=== PATIENT | female | born 1980 | race Caucasian/White ===

== ENCOUNTER 2020-12-10 17:08 | Outpatient (REF) | payer OTHER, SELFPAY | END 2020-12-10 17:09 | disposition home or self-care (01) | LOC: HO.LNP 17:08 | PROVIDERS: Visit Provider Hospitalist | DX: Z20.822 Contact with and (suspected) exposure to COVID-19 (principal); B34.9 Viral infection, unspecified | CPT/HCPCS: U0003; U0005 ==

== ENCOUNTER → 2022-01-16 11:23 | Outpatient (BNVA) | payer OTHER, SELFPAY | PROVIDERS: PCP Internal Medicine; Visit Provider Surgery | DX: R22.31 Localized swelling, mass and lump, right upper limb (principal) | CPT/HCPCS: 99202 ==

== ENCOUNTER 2022-01-23 08:10 | Outpatient (REF) | payer OTHER, SELFPAY ==
--- NOTE | ~2022-01-23 | MM_ITS ---
EXAMINATION: MM SCREENING DIGITAL BREAST TOMOSYNTHESIS, BILATERAL CLINICAL INFORMATION: Screening. Asymptomatic. Age 41. No prior breast imaging. The lifetime risk of breast cancer based on the Tyrer-Cuzick Model is 15%. COMPARISON: None (current study represents initial baseline exam). TECHNIQUE: Digital breast tomosynthesis is performed in both the craniocaudal and mediolateral oblique views along with computer-aided detection (CAD). Synthesized 2D images are generated from the tomosynthesis. Additional right MLO view is provided. FINDINGS: There are scattered areas of fibroglandular density (ACR BI-RADS breast composition Category b). There are no significant masses, abnormal calcifications, or other abnormalities. Breast tissue composition borders on heterogeneously dense. No architectural abnormality. The axilla and skin contours are unremarkable. MM/MM tomosynthesis screening BI IMPRESSION: No mammographic evidence of malignancy. ASSESSMENT: BI-RADS 1: Negative RECOMMENDATION: Routine annual mammography screening. This patient's information was entered into a reminder system with a target due date for their next mammogram.
[2022-01-23 08:34] LABS: MANUAL DIFF FLAG NO
[2022-01-23 09:15] LABS: Basophils Percent Auto 0.5 % (0-2); Eosinophils Absolute Auto 0.3 X10*3/uL (0.0-0.4); Eosinophils Percent Auto 3.2 % (0-4); Hematocrit 41.6 % (37.0-47.0); Hemoglobin 13.2 g/dl (12.0-16.0); Imm Gran Abs Auto 0.02 X10*3/uL (0.00-0.03); Imm Gran Pct Auto 0.3 % (0.0-0.4); Lymphocytes Absolute Auto 2.2 X10*3/uL (1.2-4.9); Lymphocytes Percent Auto 27.5 % (20-40); Mean Corpuscular HGB Conc 31.7 g/dl (31.0-35.0); Mean Corpuscular Hemoglobin 26.3 pg (27.0-33.0); Mean Corpuscular Volume 82.9 fL (80.0-98.0); Mean Platelet Volume 9.6 fL (9.4-12.3); Monocytes Absolute Auto 0.8 X10*3/uL (0.1-1.2); Monocytes Percent Auto 10.3 % (2-11); Neutrophils Absolute Auto 4.6 x10*3/uL (2.0-8.3); Neutrophils Percent Auto 58.2 % (45-73); Platelet Count 402 X10*3/uL (160-400); Red Blood Count 5.02 X10*6/uL (4.20-5.50); Red Cell Distribution Width 13.4 % (11.0-16.0); White Blood Count 7.9 X10*3/uL (4.8-10.8)
[2022-01-23 09:51] LABS: Alanine Aminotransferase 18 U/L (0-31); Albumin Level 4.3 g/dL (3.5-5.0); Alkaline Phosphatase 62 U/L (39-117); Anion Gap 15 (12-20); Aspartate Amino Transferase 13 U/L (5-31); Bilirubin Total 0.7 mg/dL (0.0-1.0); Blood Urea Nitrogen 11 mg/dL (9-16); Calcium 9.3 mg/dL (8.4-10.2); Carbon Dioxide 24 mmol/L (22-29); Chloride 105 mmol/L (96-108); Cholesterol 182 mg/dL; Estimated Glomerular Filt Rate > 60; Glucose Random 100 mg/dL (60-115); HDL Cholesterol 53 mg/dL; LDL Cholesterol Calculated 100 mg/dl; Potassium 4.5 mmol/L (3.3-5.1); Sodium 139 mmol/L (135-145); Total Protein 6.9 g/dL (6.5-8.0); Triglycerides 149 mg/dL
[2022-01-23 10:13] LABS: Free T4 (Free Thyroxine) 1.08 ng/dL (0.71-1.85); Thyroid Stimulating Hormone 1.59 uIU/mL (0.32-4.0); Vitamin D 25-OH Total 13.3 ng/mL (>30)
[2022-01-23 10:32] LABS: Folate 12.3 ng/mL (> or = 4.0); Vitamin B12 304 pg/mL (200-900)
== END 2022-01-23 08:11 | disposition home or self-care (01) ==
LOC: HO.MAMMO 08:10
PROVIDERS: PCP Internal Medicine; Visit Provider Internal Medicine
DX: Z12.31 Encounter for screening mammogram for malignant neoplasm of breast (principal); E78.00 Pure hypercholesterolemia, unspecified; F41.1 Generalized anxiety disorder
CPT/HCPCS: 36415; 77063; 77067; 80053; 80061; 82306; 82607; 82746; 84439; 84443; 85025

== ENCOUNTER 2022-01-27 13:58 | Outpatient (REF) | payer OTHER, SELFPAY ==
[2022-01-28 03:29] LABS: CT PCR NOT DETECTED (Not Detect.); NG PCR NOT DETECTED (Not Detect.)
[2022-01-28 12:44] LABS: BV Int Neg Control Negative (Negative); BV Int Pos Control Positive (Positive)
[2022-01-30 10:07] LABS: HPV mRNA E6/E7 rflx Not Detected (Not Detected)
== END 2022-01-27 13:59 | disposition home or self-care (01) ==
LOC: HO.LNP 13:58
PROVIDERS: Visit Provider Advanced Practice Midwife
DX: Z01.419 Encounter for gynecological examination (general) (routine) without abnormal findings (principal); Z11.51 Encounter for screening for human papillomavirus (HPV)
CPT/HCPCS: 87480; 87491; 87510; 87591; 87624; 87660; 88142

== ENCOUNTER 2022-02-04 05:06 | Outpatient (REF) | payer OTHER, SELFPAY ==
--- NOTE | ~2022-02-04 | XR_ITS ---
EXAMINATION: XR HAND, RIGHT CLINICAL INFORMATION: Pain COMPARISON: Previous x-ray July 2013 TECHNIQUE: PA, lateral, and oblique views of the right hand. FINDINGS: Bone alignment is normal. No fracture or dislocation. Normal joint spaces. Soft tissue swelling over the dorsal ulnar distal phalanx of the third finger. No abnormal air collection or soft tissue foreign body. XR/XR hand RT min 3V IMPRESSION: Focal soft tissue swelling over the dorsal ulnar distal phalanx of the third finger.
== END 2022-02-04 05:07 | disposition home or self-care (01) ==
LOC: HO.HOSX 05:06
PROVIDERS: Visit Provider Physician Assistant
DX: M67.441 Ganglion, right hand (principal)
CPT/HCPCS: 73130; 99202

== ENCOUNTER 2022-08-18 08:34 | Outpatient (REF) | payer OTHER, SELFPAY ==
[2022-08-18 09:40] LABS: MANUAL DIFF FLAG NO
[2022-08-18 10:10] LABS: Basophils Percent Auto 0.2 % (0-2); Eosinophils Absolute Auto 0.4 X10*3/uL (0.0-0.4); Eosinophils Percent Auto 4.5 % (0-4); Hematocrit 42.6 % (37.0-47.0); Hemoglobin 13.3 g/dl (12.0-16.0); Imm Gran Abs Auto 0.02 X10*3/uL (0.00-0.03); Imm Gran Pct Auto 0.2 % (0.0-0.4); Lymphocytes Absolute Auto 2.5 X10*3/uL (1.2-4.9); Lymphocytes Percent Auto 28.9 % (20-40); Mean Corpuscular HGB Conc 31.2 g/dl (31.0-35.0); Mean Corpuscular Hemoglobin 25.9 pg (27.0-33.0); Mean Platelet Volume 9.7 fL (9.4-12.3); Monocytes Absolute Auto 0.7 X10*3/uL (0.1-1.2); Monocytes Percent Auto 8.1 % (2-11); Neutrophils Absolute Auto 4.9 x10*3/uL (2.0-8.3); Neutrophils Percent Auto 58.1 % (45-73); Platelet Count 416 X10*3/uL (160-400); Red Blood Count 5.13 X10*6/uL (4.20-5.50); Red Cell Distribution Width 13.5 % (11.0-16.0); White Blood Count 8.5 X10*3/uL (4.8-10.8)
[2022-08-18 10:25] LABS: Estimated Average Glucose 117 mg/dL; Hemoglobin A1c % 5.7 %
[2022-08-18 10:50] LABS: Alanine Aminotransferase 16 U/L (0-31); Albumin Level 4.1 g/dL (3.5-5.0); Alkaline Phosphatase 60 U/L (39-117); Anion Gap 11 (12-20); Aspartate Amino Transferase 12 U/L (5-31); Bilirubin Total 0.9 mg/dL (0.0-1.0); Blood Urea Nitrogen 12 mg/dL (9-16); Calcium 9.7 mg/dL (8.4-10.2); Carbon Dioxide 27 mmol/L (22-29); Chloride 107 mmol/L (96-108); Estimated Glomerular Filt Rate > 60; Glucose Random 101 mg/dL (60-115); Potassium 4.8 mmol/L (3.3-5.1); Sodium 140 mmol/L (135-145); Total Protein 6.6 g/dL (6.5-8.0)
[2022-08-18 11:08] LABS: Free T4 (Free Thyroxine) 0.89 ng/dL (0.71-1.85); Thyroid Stimulating Hormone 2.35 uIU/mL (0.32-4.0)
== END 2022-08-18 08:35 | disposition home or self-care (01) ==
LOC: HO.LAB 08:34
PROVIDERS: Absent Provider Internal Medicine; PCP Internal Medicine; Visit Provider Dietitian, Registered
DX: E66.9 Obesity, unspecified (principal); R19.7 Diarrhea, unspecified; Z71.3 Dietary counseling and surveillance
CPT/HCPCS: 36415; 80053; 83036; 84439; 84443; 85025; 97802

== ENCOUNTER 2022-12-11 11:15 | Outpatient (REF) | payer OTHER, SELFPAY ==
[2022-12-11 11:28] LABS: MANUAL DIFF FLAG NO
[2022-12-11 13:52] LABS: Basophils Percent Auto 0.4 % (0-2); Eosinophils Absolute Auto 0.2 X10*3/uL (0.0-0.4); Hematocrit 43.1 % (37.0-47.0); Hemoglobin 13.7 g/dl (12.0-16.0); Imm Gran Abs Auto 0.03 X10*3/uL (0.00-0.03); Imm Gran Pct Auto 0.3 % (0.0-0.4); Immature Retic Fraction 12.1 % (3.0-15.9); Lymphocytes Absolute Auto 2.6 X10*3/uL (1.2-4.9); Lymphocytes Percent Auto 29.1 % (20-40); Mean Corpuscular HGB Conc 31.8 g/dl (31.0-35.0); Mean Corpuscular Hemoglobin 26.7 pg (27.0-33.0); Mean Corpuscular Volume 83.9 fL (80.0-98.0); Monocytes Absolute Auto 0.7 X10*3/uL (0.1-1.2); Monocytes Percent Auto 7.5 % (2-11); Neutrophils Absolute Auto 5.4 x10*3/uL (2.0-8.3); Neutrophils Percent Auto 60.7 % (45-73); Platelet Count 415 X10*3/uL (160-400); Red Blood Count 5.14 X10*6/uL (4.20-5.50); Red Cell Distribution Width 13.7 % (11.0-16.0); Retic HGB Equivalent 30.7 pg (30.0-35.0); Reticulocytes Absolute 0.101 X10*6/uL (0.026-0.095); White Blood Count 8.9 X10*3/uL (4.8-10.8)
[2022-12-11 13:59] LABS: Appearance Urine Clear; Color Urine Yellow; Glucose Urine UA Negative (Negative); Leukocyte Esterase Urine Negative (Negative); Nitrite Urine Negative (Negative); PH 5.5 (5.0-9.0); Urine Blood Negative (Negative); Urine Ketones Negative (Negative); Urine Protein Negative (Neg-Trace)
[2022-12-11 14:05] LABS: Bacteria Urine 1+ (None Seen); Hyaline Casts Urine 0-2 /LPF (0-2); RBC Urine 0-2 /HPF (0-2); WBC Urine 0-5 /HPF (0-5)
[2022-12-11 14:46] LABS: Alanine Aminotransferase 14 U/L (0-31); Albumin Level 4.1 g/dL (3.5-5.0); Alkaline Phosphatase 59 U/L (39-117); Anion Gap 13 (12-20); Aspartate Amino Transferase 12 U/L (5-31); Bilirubin Total 0.7 mg/dL (0.0-1.0); Blood Urea Nitrogen 14 mg/dL (9-16); Calcium 9.3 mg/dL (8.4-10.2); Carbon Dioxide 25 mmol/L (22-29); Chloride 106 mmol/L (96-108); Estimated Glomerular Filt Rate > 60; Glucose Random 92 mg/dL (60-115); Iron 89 mcg/dL (30-160); Percent Iron Saturation 25 % (15-50); Potassium 4.1 mmol/L (3.3-5.1); Sodium 140 mmol/L (135-145); Total Iron Binding Capacity 357 mcg/dL (228-428); Total Protein 7.1 g/dL (6.5-8.0); Unsaturated Iron Binding 268 ug/dL
[2022-12-11 14:51] LABS: Ferritin 26 ng/mL (10-250); Free T4 (Free Thyroxine) 0.82 ng/dL (0.71-1.85); Thyroid Stimulating Hormone 1.17 uIU/mL (0.32-4.0)
[2022-12-11 15:47] LABS: Folate 4.2 ng/mL (> or = 4.0); Vitamin B12 316 pg/mL (200-900)
== END 2022-12-11 11:16 | disposition home or self-care (01) ==
LOC: HO.LAB 11:15
PROVIDERS: PCP Internal Medicine; Visit Provider Internal Medicine
DX: N92.1 Excessive and frequent menstruation with irregular cycle (principal)
CPT/HCPCS: 36415; 80053; 81001; 82607; 82728; 82746; 83540; 84439; 84443; 85025; 85045

== ENCOUNTER 2023-01-15 09:28 | Outpatient (AMB) | payer OTHER, SELFPAY ==
[2023-01-15 09:33] VITALS: BP 114/78; PULSE 80; O2SAT 98; BMI 41.8
--- NOTE | 2023-01-15 09:33 | A.OFFPC_ITS ---
Vital Signs 01/15/23 09:33 Height 5 ft 5 in Weight 251 lb BMI 41.8 BP 114/78 Blood Pressure Location Lt brachial Position Sitting Pulse 80 Pulse Source Pulse Oximeter Pulse Oximetry (%) 98 Oxygen Delivery Method Room Air Intake Visit Reasons: IGT Allergies No Known Allergies Allergy (Verified 01/15/23 09:34) Medication List - Last Reconciled 01/15/23 by Artur Dove MD cetirizine (Zyrtec) 10 mg PO DAILY PRN ferrous gluconate (Ferate) 240 mg PO DAILY folic acid 1 mg PO DAILY Tobacco use date assessed: 07/17/22 Dental Screening Dental Screen Date: 01/15/23 Did you have a dental visit in the last 12 months?: No Did you have a dental problem in the last 6 months where you did not have access to dental care?: No Was dental information given to patient?: No HPI IGT HPI Details 42-year-old obese female with impaired g lucose tolerance last seen in June 2022 for physical exam. Patient's mammogram is due next month.. Patient is complaining about having tinnitus in both ears and on exam had some mild impacted cerumen on the right side which was taken out. Patient is advise hearing test. Patient has right middle finger mucoid cyst which the Orthopedics has seen and has advised excision and patient was hesitant at but now wants to have this taken out. Did warn patient that it does come back. Also patient is going to be following up with Gynecology as she has been having menorrhagia. She does complain about having hot flashes also. Discussed about menopause and patient's mother had it early also and discussed that most likely she will have it early also. Discussed about alternative treatments like sway but patient will be seeing gynecology. Blood work santos discussed noted some low normal ferritin and low normal folic acid which is going to be replaced. [facility] Medical History (Updated 01/15/23 @ 09:53 by Artur Dove MD) Breast cancer screening by mammogram Well woman exam with routine gynecological exam Dermatitis Cellulitis Finger mass, right Major depression Dog bite Bronchitis Allergic rhinitis Surgical History Status post osteotomy H/O arthroscopy Family History (Updated 07/17/22 @ 12:37 by Kera Stephens) Maternal Grandmother Breast cancer Father Substance abuse Other FH: mental illness Social History (Updated 07/17/22 @ 12:46 by Artur Dove MD) Housing: Apartment Alcohol intake: current Patient Tobacco Use Status: Current someday Tobacco user Tobacco use type: Cigarette Cigarettes Per Day: 1 Years Smoked: smokes 1 Q 2 a week. 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 1. Little interest or pleasure in doing things: several days 2. Feeling down, depressed, or hopeless: several days 3. Trouble falling or staying asleep, or sleeping too much: several days 4. Feeling tired or having little energy: several days 5. Poor appetite or overeating: several days 6. Feeling bad about yourself - or that you are a failure or have let yourself or your family down: several days 7. Trouble concentrating on things, such as reading the newspaper or watching television: more than half the days 8. Moving or speaking so slowly that other people could have noticed. Or the opposite - being so fidgety or restless that you have been moving around a lot more than usual: not at all 9. Thoughts that you would be better off or of hurting yourself in some way: not at all Total score: 8 Depression Screening Interpretation: Positive Source: Developed by Drs. Greg De La Torre, Linda Cervantes, Jones Newton and colleagues, with an educational alexia from [employer]. Thrive Questionnaire Date Thrive assessed: 07/17/22 AUDIT C Alcohol Use Questionnaire (AUDIT-C) 1. How often do you have a drink containing alcohol?: 2-4 times a month 2. How many drinks containing alcohol do you have on a typical day when you are drinking?: 1 or 2 3. How often do you have six or more drinks on one occasion?: Less than monthly Total Score: 3 SHILPI-7 AMB Questionnaire SHILPI-7 Date SHILPI - 7 assessed: 07/17/22 Source: Developed by Drs. Greg L. WilLinda chong, Jones Newton and colleagues, with an educational alexia from [employer]. Physical exam (Primary Care) Vital Signs: Oxygen Delivery Method Room Air 01/15/23 09:33 BMI result Body Mass Index 41.8 Tobacco/Smoking Status: Tobacco use Status Tobacco use date assessed 07/17/22 07/17/22 12:39 Patient Tobacco Use Status Current someday Tobacco 07/17/22 12:46 Tobacco use type Cigarette 07/17/22 12:46 e-Cigarette/Vaping Use Never Used 07/17/22 12:46 Depression Screening Interpretation: Positive Thrive Assessment: Date of Thrive Assessment Date Thrive assessed 07/17/22 07/17/22 12:39 Const General: alert; No acute distress Eyes Conjunctivae: conjunctivae normal Resp Auscultation: clear to auscultation bilaterally Cardio Rate: regular rate Rhythm: regular rhythm GI Inspection: Yes normal to inspection Extrem General: Yes normal to inspection and No edema Assessment and Plan Assessment & Plan (1) Impaired fasting blood sugar: Code(s): R73.01 - Impaired fasting glucose Plan: Decrease the amount of carbohydrate intake, pasta, bread, rice and potatoes are all sugar and that is aside from all the sweet stuff, remember that fruits are good but they are Sweet also. Recent blood work showing normal blood sugar (2) Obesity: Code(s): E66.9 - Obesity, unspecified Plan: Diet and exercise (3) Breast cancer screening by mammogram: Code(s): Z12.31 - Encounter for screening mammogram for malignant neoplasm of breast Plan: Reminded about mammogram (4) Folic acid deficiency: Code(s): E53.8 - Deficiency of other specified B group vitamins (5) Iron deficiency: Code(s): E61.1 - Iron deficiency (6) Mucoid cyst of joint: Comment: Right middle finger Code(s): M67.40 - Ganglion, unspecified site (7) Tinnitus, bilateral: Code(s): H93.13 - Tinnitus, bilateral Orders: Referrals Orthopedics Referral M67.40 - Ganglion, unspecified site Speech and Hearing Referral H93.13 - Tinnitus, bilateral Medications: New ferrous gluconate (Ferate) 240 mg PO DAILY 30 tabs 3RF E61.1 - Iron deficiency folic acid 1 mg PO DAILY 30 tabs 3RF E53.8 - Deficiency of other specified B group vitamins Coding Level of Care Code Est Pt Level 4 (57190) Diagnoses Impaired fasting blood sugar R73.01 Obesity E66.9 Breast cancer screening by mammogram Z12.31 Folic acid deficiency E53.8 Iron deficiency E61.1 Mucoid cyst of joint M67.40 Tinnitus, bilateral H93.13
== END 2023-01-15 09:58 | disposition home or self-care (01) ==
PROVIDERS: Visit Provider Internal Medicine
DX: R73.01 Impaired fasting glucose (principal); E66.01 Morbid (severe) obesity due to excess calories; Z68.41 Body mass index [BMI] 40.0-44.9, adult; E61.1 Iron deficiency; M67.40 Ganglion, unspecified site; H93.13 Tinnitus, bilateral
CPT/HCPCS: 99214

== ENCOUNTER 2023-03-18 15:01 | Outpatient (AMB) | payer OTHER, SELFPAY ==
--- NOTE | 2023-03-18 15:02 | MHC.OFFVIS ---
Intake Vital Signs 03/18/23 15:16 Height 5 ft 5 in Weight 251 lb BMI 41.8 Intake Visit Reasons: ov- R middle finger ganglion Intake Note: Soledad badillo 42 year old left hand dominant female presents today for a follow up of right MF ganglion cyst. Patient was last seen in 2021 and surgical intervention was discussed however patient was unable to take the time off of work. She states tenderness and bleeding from lump when she is on her menstrual cycle. She would like to discuss surgical intervention today. Allergies No Known Allergies Allergy (Verified 03/18/23 15:18) HPI ov- R middle finger ganglion HPI Details 42-year-old right hand dominant female who returns to the office today for a follow-up of right middle finger ganglion cyst. She was seen in 2021 where surgical intervention was discussed but she was unable to take the time off of work. She currently states she has tenderness and bleeding from the lump when she is on her menses. She would like to discuss surgical intervention. 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 [facility] Medical History (Updated 03/16/23 @ 16:20 by Santana Cordoba PA-C) Breast cancer screening by mammogram Well woman exam with routine gynecological exam Dermatitis Cellulitis Finger mass, right Major depression Dog bite Bronchitis Allergic rhinitis Surgical History Status post osteotomy H/O arthroscopy Family History (Updated 07/17/22 @ 12:37 by Kera Stephens) Maternal Grandmother Breast cancer Father Substance abuse Other FH: mental illness Social History (Updated 03/18/23 @ 15:15 by BUSTER Palomino) Housing: Apartment Alcohol intake: current Patient Tobacco Use Status: Current someday Tobacco user Tobacco use type: Cigarette Cigarettes Per Day: 1 Years Smoked: smokes 1 Q 2 a week. 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 Cognitive needs: No Hearing needs: No Vision needs: Yes Female Reproductive History Menstrual Age of Menarche: 14 Review of Systems Const All systems reviewed & are unremarkable except as noted in HPI and below Physical Exam Vital Signs: BMI result Body Mass Index 41.8 Const General: cooperative and no acute distress Orientation/consciousness: patient oriented x3 HEENT Head: Yes normal to inspection, Yes normocephalic and Yes atraumatic Eyes General: appearance normal, both eyes and all related structures Neck Neck: Yes normal visual inspection and Yes no lymphadenopathy Resp Effort & Inspection: normal respiratory effort and able to speak in complete sentences Cardio Rate: regular rate Peripheral pulses: Peripheral pulses 2+ throughout GI Inspection: Yes normal to inspection Palpation (GI): Soft to palpation Skin General skin exam: no rashes or lesions noted Neuro General: patient oriented x3 Extrem Other: She has a mucoid like cyst along the ulnar side of the right middle finger along the base of the nail. There is no fluctulence or purulence. No tenderness to palpation. Full ROM of the finger. NVI. Psych Appearance: grossly normal Mental Status: mental status grossly normal Assessment & Plan Assessment & Plan (1) Mucoid cyst of joint: Comment: Right middle finger Code(s): M67.40 - Ganglion, unspecified site Plan We discussed options which include conservative vs operative treatment. Since this has been present for several months and it is causing discomfort the decision was made to undergo surgical intervention. We discussed risk, benefits and alternatives. Risk including but not limited to infection, stiffness, recurrence of mass and pain. She does understand all this and would like to proceed with excision biopsy of right middle finger with Dr. José. She will be booked accordingly. Patient Instructions: Scribed for Aurora Obrien PA-C, by Srini Matos biomedical engineering internship, on 03/18/2023 at 3:15 PM PATTI. Aurora Burgess PA-C, have personally reviewed and agree with the information entered by the scribe. Coding Level of Care Code Est Pt Level 4 (01026) Diagnoses Mucoid cyst of joint M67.40
[2023-03-18 15:16] VITALS: BMI 41.8
== END 2023-03-18 15:53 | disposition home or self-care (01) ==
PROVIDERS: PCP Internal Medicine; Visit Provider Physician Assistant
DX: M67.441 Ganglion, right hand (principal)
CPT/HCPCS: 99214

== ENCOUNTER → 2023-03-18 15:01 | Outpatient (BNVA) | payer OTHER, SELFPAY | PROVIDERS: PCP Internal Medicine; Visit Provider Physician Assistant | DX: M67.40 Ganglion, unspecified site (principal) | CPT/HCPCS: 99212 ==

== ENCOUNTER 2023-07-06 16:37 | Outpatient (AMB) | payer SELFPAY ==
--- NOTE | 2023-07-06 16:40 | A.OFFPC_ITS ---
Vital Signs 3 07/06/23 16:41 Height 5 ft 5 in Weight 244 lb 0.2 oz BMI 40.6 BP 138/90 H Blood Pressure Location Lt brachial Position Sitting Pulse 71 Pulse Source Pulse Oximeter Pulse Oximetry (%) 100 Oxygen Delivery Method Room Air Intake Visit Reasons: Hemorrhoids Retort Cooler Required: No Allergies No Known Allergies Allergy (Verified 07/06/23 16:40) Tobacco use date assessed: 07/06/23 HPI Hemorrhoids 2 HPI0 Details 42-year-old morbidly obese female with a history of impaired glucose tolerance coming in for an acute problem review of the notes in February seen Orthopedics for right middle finger mass. Advised excision. Patient also notes a mass in the rectal area. noted mass recatal area 2 months has diarrhea patient has been teary also in the office and is very anxious and asking for something to help. [facility] Medical History (Updated 07/06/23 @ 17:22 by Artur Dove MD) Breast cancer screening by mammogram Well woman exam with routine gynecological exam Dermatitis Cellulitis Finger mass, right Major depression Dog bite Bronchitis Allergic rhinitis Surgical History Status post osteotomy H/O arthroscopy Family History (Updated 07/17/22 @ 12:37 by Kera Stephens) Maternal Grandmother Breast cancer Father Substance abuse Other FH: mental illness Social History (Updated 03/18/23 @ 15:15 by BUSTER Palomino) Housing: Apartment Alcohol intake: current Patient Tobacco Use Status: Current someday Tobacco user Tobacco use type: Cigarette Cigarettes Per Day: 1 Years Smoked: smokes 1 Q 2 a week. 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 Cognitive needs: No Hearing needs: No Vision needs: Yes Female Reproductive History Menstrual Age of Menarche: 14 Questionnaire Thrive Questionnaire Date Thrive assessed: 07/06/23 I am a: Patient What is your living situation today?: I have a steady place to live Within the past 12 months, did the food you bought not last and you didn't have the money to get more?: Never true Within the past 12 months, did you worry whether your food would run out before you got money to buy more?: Never true Do you have trouble paying for medicines?: No Do you have trouble getting transportation to medical appointments?: No Do you have trouble paying your heating and electricity bill?: No Do you have trouble taking care of your child, family member or friend?: No Do you have trouble with day-to-day activities such as bathing, preparing meals, shopping, managing finances, etc.?: No Are you currently unemployed and looking for a job?: No Are you interested in more education?: No Please select the resources that you would like help with: None THRIVE Score: 0 AUDIT C Alcohol Use Questionnaire (AUDIT-C) 1. How often do you have a drink containing alcohol?: 2-4 times a month 2. How many drinks containing alcohol do you have on a typical day when you are drinking?: 1 or 2 3. How often do you have six or more drinks on one occasion?: Less than monthly Total Score: 3 Physical exam (Primary Care) Vital Signs: Last Vital Signs Pulse 71 07/06/23 16:41 BP 138/90 H 07/06/23 16:41 Pulse Ox 100 07/06/23 16:41 Oxygen Delivery Method Room Air 07/06/23 16:41 BMI result Body Mass Index 40.6 Tobacco/Smoking Status: Tobacco use Status Tobacco use date assessed 07/06/23 07/06/23 16:42 Patient Tobacco Use Status Current someday Tobacco 07/06/23 16:42 Tobacco use type Cigarette 07/06/23 16:42 e-Cigarette/Vaping Use Never Used 07/06/23 16:42 Thrive Assessment: Date of Thrive Assessment Date Thrive assessed 07/06/23 07/06/23 16:42 Female genitals images: 2 1. L soft mass seen on the upper gluteal area Assessment and Plan Assessment & Plan (1) Gluteal abscess: Code(s): L02.31 - Cutaneous abscess of buttock (2) Generalized anxiety disorder: Code(s): F41.1 - Generalized anxiety disorder Medications: New 2 amoxicillin-pot clavulanate 875-125 mg 1 tab PO BID 14 tabs 0RF L02.31 - Cutaneous abscess of buttock alprazolam 0.25 mg PO BEDTIME PRN 14 tabs 0RF sleep F41.1 - Generalized anxiety disorder Coding Level of Care Code Est Pt Level 3 (56238) Diagnoses Gluteal abscess L02.31 Generalized anxiety disorder F41.1
[2023-07-06 16:41] VITALS: BP 138/90; PULSE 71; O2SAT 100; BMI 40.6
== END 2023-07-06 17:40 | disposition home or self-care (01) ==
PROVIDERS: PCP Internal Medicine; Visit Provider Internal Medicine
DX: L02.31 Cutaneous abscess of buttock (principal); F41.1 Generalized anxiety disorder
CPT/HCPCS: 99213

== ENCOUNTER 2023-11-11 15:39 | Emergency (ER) | payer OTHER, SELFPAY ==
[2023-11-11 16:10] VITALS: BP 169/89; PULSE 90; RESP 16; TEMP 36.8; O2SAT 98; BMI 39.9
--- NOTE | 2023-11-11 16:10 | ED.GENADULT ---
HPI - General Adult General Chief complaint: Skin/Abscess/Foreign Body Stated complaint: Infection? Time Seen by Provider: 11/11/23 17:51 Source: patient Mode of arrival: ambulatory Limitations: no limitations History of Present Illness ED Provider: Cl MAGAÑA HPI narrative: 43-year-old female presents with right buttocks pain reports she has an abscess that has been draining intermittently for the past 2 and half months, patient reports this started after getting Yemeni she has been on 2 rounds of antibiotics however not improving she has been on Bactrim currently is on day 4 of Bactrim and does not feel like it is working. Patient reports the area is tender, and drains pus and blood. Patient has not yet seen a specialist for this. Denies fevers, chills, nausea, vomiting, abdominal pain, headache, vision changes, dizziness and weakness. Related Data Home Medications ?Medication ?Instructions ?Recorded ?Confirmed cetirizine 10 mg tablet (Zyrtec) 10 mg PO DAILY PRN 07/17/22 01/15/23 Previous Rx's ?Medication ?Instructions ?Recorded ferrous gluconate 240 mg (27 mg 240 mg PO DAILY #30 tabs 01/15/23 iron) tablet (Ferate) folic acid 1 mg tablet 1 mg PO DAILY #30 tabs 01/15/23 alprazolam 0.25 mg tablet 0.25 mg PO BEDTIME PRN sleep #14 07/06/23 tabs sulfamethoxazole 800 1 tab PO BID 7 days #14 tabs 10/17/23 mg-trimethoprim 160 mg tablet (Bactrim DS) cephalexin 500 mg tablet 500 mg PO Q6H 10 days #40 tabs 11/11/23 doxycycline hyclate 100 mg capsule 100 mg PO BID 10 days #20 caps 11/11/23 fluconazole 150 mg tablet 150 mg PO Q3D 2 doses #2 tabs 11/11/23 Allergies Allergy/AdvReac Type Severity Reaction Status Date / Time No Known Allergies Allergy Verified 11/11/23 16:11 Review of Systems Review of Systems: Yes all other systems are reviewed and are negative PMFSH Past Medical History Attestation statement: The following information was validated with the patient. Source: old records reviewed and nursing notes reviewed Medical History (Updated 11/11/23 @ 18:07 by SHAHID Iyer) Breast cancer screening by mammogram Well woman exam with routine gynecological exam Dermatitis Cellulitis Finger mass, right Major depression Dog bite Bronchitis Allergic rhinitis Surgical History Status post osteotomy H/O arthroscopy Family History Family History (Updated 07/17/22 @ 12:37 by BUSTER Harrell) Maternal Grandmother Breast cancer Father Substance abuse Other FH: mental illness Social History Social History (Updated 03/18/23 @ 15:15 by BUSTER Palomino) Housing: Apartment Alcohol intake: current Patient Tobacco Use Status: Current someday Tobacco user Tobacco use type: Cigarette Cigarettes Per Day: 1 Years Smoked: smokes 1 Q 2 a week. 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 Oriented X3.? No acute distress.? Head: Normocephalic, atraumatic, no step-offs or deformities Eyes: Pupils equal, round and reactive to light.? CVS: ? Pulses normal.? Respiratory: No respiratory distress Sensative: buttock (right) draining abscess x 2 small < 1 cm each w/ overlying errythmea no warmth. Abdomen: Soft and nontender.? Skin: Skin warm and dry.? Normal skin color.? Normal skin turgor.? Extremities: No lower extremity edema.? No calf ttp. 5/5 strength to bilateral upper and lower extremities Neuro: Oriented X 3.? No motor deficit.? No sensory deficit. CN 2-12 intact Course Course Course Narrative: This is a rapid medical exam performed by Nicolas Tabares NP: Additional HPI, ROS, PE not included below will be deferred to primary provider. Patient is a 43-year-old female presenting to the ED with complaint of buttock abscess. States began as an ingrown hair after a kosovan wax. Saw PCP and was on a course of antibiotics, is now worsening again. Spontaneous drainage. Plan: labs Reevaluation(s) Reevaluation #1: Patient was told to stop Bactrim and start doxycycline and Keflex. Educated patient on diagnosis and treatment plan, answered all question, patient verbalizes understanding. At this time patient will be discharged home, advised to return with new or worsening symptoms. Educated on worrisome signs and symptoms and when to return. At this time I feel comfortable discharge home. Time: 18:30 Medical Decision Making Medical Decision Making [facility] Narrative: 43-year-old female presents with draining abscess to right buttocks x2 months intermittently improving and getting worse. Physical exam buttock (right) draining abscess x 2 small < 1 cm each w/ overlying errythmea no warmth. History and physical exam concerning for draining abscess with possible overlying cellulitis. No signs of necrosis, Lani gangrene, deep abscess. Unlikely systemic infection. Other differential includes hidradenitis suppurativa Plan change antibiotics and general surgery follow-up. Differential Diagnosis Differential Diagnoses: The differential diagnosis associated with the presentation includes History and physical exam concerning for draining abscess with possible overlying cellulitis. No signs of necrosis, Lani gangrene, deep abscess. Unlikely systemic infection. Other differential includes hidradenitis suppurativa Admission/Observation Consideration of admission/observation: Escalation of care including admission/observation considered Lab Data [facility] Lab Attestation statement: I reviewed the patient's lab results. 11/11/23 16:45 11/11/23 16:45 Labs: Lab Results 11/11/23 Range/Units 16:45 WBC 9.2 (4.8-10.8) X10*3/uL RBC 4.96 (4.20-5.50) X10*6/uL Hgb 13.5 (12.0-16.0) g/dl Hct 41.2 (37.0-47.0) % MCV 83.1 (80.0-98.0) fL MCH 27.2 (27.0-33.0) pg MCHC 32.8 (31.0-35.0) g/dl RDW 13.2 (11.0-16.0) % Plt Count 362 (160-400) X10*3/uL MPV 9.3 L (9.4-12.3) fL Immature Gran % (Auto) 0.3 (0.0-0.4) % Neut % (Auto) 56.7 (45-73) % Lymph % (Auto) 31.1 (20-40) % [place] % (Auto) 7.5 (2-11) % Eos % (Auto) 4.1 H (0-4) % Baso % (Auto) 0.3 (0-2) % Lymph # (Auto) 2.9 (1.2-4.9) X10*3/uL [place] # (Auto) 0.7 (0.1-1.2) X10*3/uL Eos # (Auto) 0.4 (0.0-0.4) X10*3/uL Baso # (Auto) 0.0 (0.0-0.2) X10*3/uL Abs Immat Gran (auto) 0.03 (0.00-0.03) X10*3/uL Absolute Neuts (auto) 5.2 (2.0-8.3) x10*3/uL Absolute Nucleated RBC 0.000 (0.0-0.012) X10*3/uL Nucleated RBC % (auto) 0.0 (0.0-0.2) /100WBC Sodium 140 (135-145) mmol/L Potassium 4.2 (3.3-5.1) mmol/L Chloride 109 H (96-108) mmol/L Carbon Dioxide 20 L (22-29) mmol/L Anion Gap 15 (12-20) BUN 10 (9-16) mg/dL Creatinine 0.86 (0.5-1.4) mg/dL Estim Creat Clear Calc 103.4 Estimated GFR > 60 Random Glucose 100 (60-115) mg/dL Calcium 9.7 (8.4-10.2) mg/dL Total Bilirubin 0.3 (0.0-1.0) mg/dL AST 15 (5-31) U/L ALT 19 (0-31) U/L Alkaline Phosphatase 58 (39-117) U/L Total Protein 7.3 (6.5-8.0) g/dL Albumin 4.3 (3.5-5.0) g/dL External Record Review External record reviewed: Inpatient record, Office record, Outpatient record, Prior outpatient labs, Prior outpatient radiology, Primary care record and Outside ED record Prescription Management I considered prescription management with: Antibiotic Discharge Plan Discharge Clinical Impression: Abscess of buttock, right Patient Disposition: Home, Self-Care Instructions: Abscess (ED), Sitz Bath (DC), Abscess Follow-up (ED) Additional Instructions: Take your medications as prescribed. If you were prescribed antibiotics today, it is important that you take your medication to their entirety, do not skip any doses, do not finish them early. Follow-up with your primary care provider this week. Return to the emergency department with new or worsening symptoms. Such as fevers, chills, chest pain, shortness of breath, nausea, vomiting, dizziness, headache, vision changes, lethargy In case of emergency call 911 Prescriptions: New cephalexin 500 mg tablet 500 mg PO Q6H 10 Days Qty: 40 0RF doxycycline hyclate 100 mg capsule 100 mg PO BID 10 Days Qty: 20 0RF fluconazole 150 mg tablet 150 mg PO Q3D Qty: 2 0RF No Action sulfamethoxazole-trimethoprim [Bactrim DS] 800-160 mg tablet 1 tab PO BID 7 Days Qty: 14 0RF cetirizine [Zyrtec] 10 mg tablet 10 mg PO DAILY PRN alprazolam 0.25 mg tablet 0.25 mg PO BEDTIME PRN (Reason: sleep) Qty: 14 0RF ferrous gluconate [Ferate] 240 mg (27 mg iron) tablet 240 mg PO DAILY Qty: 30 3RF folic acid 1 mg tablet 1 mg PO DAILY Qty: 30 3RF Referrals: [facility] [Provider Group] - 2 days Po,Artur Crane MD [Primary Care Provider] - 2 days Stand Alone Forms: Work/School Release Print Language: Lithuanian
[2023-11-11 16:50] LABS: Basophils Percent Auto 0.3 % (0-2); Eosinophils Absolute Auto 0.4 X10*3/uL (0.0-0.4); Eosinophils Percent Auto 4.1 % (0-4); Hematocrit 41.2 % (37.0-47.0); Hemoglobin 13.5 g/dl (12.0-16.0); Imm Gran Abs Auto 0.03 X10*3/uL (0.00-0.03); Imm Gran Pct Auto 0.3 % (0.0-0.4); Lymphocytes Absolute Auto 2.9 X10*3/uL (1.2-4.9); Lymphocytes Percent Auto 31.1 % (20-40); MANUAL DIFF FLAG NO; Mean Corpuscular HGB Conc 32.8 g/dl (31.0-35.0); Mean Corpuscular Hemoglobin 27.2 pg (27.0-33.0); Mean Corpuscular Volume 83.1 fL (80.0-98.0); Mean Platelet Volume 9.3 fL (9.4-12.3); Monocytes Absolute Auto 0.7 X10*3/uL (0.1-1.2); Monocytes Percent Auto 7.5 % (2-11); Neutrophils Absolute Auto 5.2 x10*3/uL (2.0-8.3); Neutrophils Percent Auto 56.7 % (45-73); Platelet Count 362 X10*3/uL (160-400); Red Blood Count 4.96 X10*6/uL (4.20-5.50); Red Cell Distribution Width 13.2 % (11.0-16.0); White Blood Count 9.2 X10*3/uL (4.8-10.8)
[2023-11-11 17:04] LABS: Alanine Aminotransferase 19 U/L (0-31); Albumin Level 4.3 g/dL (3.5-5.0); Alkaline Phosphatase 58 U/L (39-117); Anion Gap 15 (12-20); Aspartate Amino Transferase 15 U/L (5-31); Bilirubin Total 0.3 mg/dL (0.0-1.0); Blood Urea Nitrogen 10 mg/dL (9-16); Calcium 9.7 mg/dL (8.4-10.2); Carbon Dioxide 20 mmol/L (22-29); Chloride 109 mmol/L (96-108); Creatinine Clr Calc Pharmacy 103.4; Estimated Glomerular Filt Rate > 60; Glucose Random 100 mg/dL (60-115); Potassium 4.2 mmol/L (3.3-5.1); Sodium 140 mmol/L (135-145); Total Protein 7.3 g/dL (6.5-8.0)
[2023-11-11 19:06] VITALS: BP 156/72; PULSE 86; RESP 16; TEMP 36.7; O2SAT 98
== END 2023-11-11 19:06 | disposition home or self-care (01) ==
PROVIDERS: Registered Nurse Emergency; Emergency Provider Emergency Medicine; PCP Internal Medicine
DX: L02.31 Cutaneous abscess of buttock (principal); Z79.899 Other long term (current) drug therapy; F17.210 Nicotine dependence, cigarettes, uncomplicated
CPT/HCPCS: 36415; 80053; 85025; 99282; 99283

== ENCOUNTER 2024-07-18 15:23 | Outpatient (AMB) | payer BC, SELFPAY ==
--- NOTE | 2024-07-18 15:43 | A.OFFPC_ITS ---
Vital Signs 3 07/18/24 15:45 Height 5 ft 5 in Weight 250 lb 6 oz BMI 41.7 BP 120/72 Blood Pressure Location Lt brachial Position Sitting Pulse 82 Pulse Source Pulse Oximeter Temp 97.1 F Temp Source Temporal Artery Scan Pulse Oximetry (%) 97 Oxygen Delivery Method Room Air Intake Visit Reasons: MEDs review Intake Note: Patient is here to follow up on med review. 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: No Materials Director: Not Required per policy Accompanied by: Self / Same As Patient Allergies No Known Allergies Allergy (Verified 07/18/24 15:44) Tobacco use date assessed: 07/18/24 Dental Screening Dental Screen Date: 07/18/24 Did you have a dental visit in the last 12 months?: No Did you have a dental problem in the last 6 months where you did not have access to dental care?: No Was dental information given to patient?: No [facility] Medical History (Updated 07/18/24 @ 16:19 by Artur Dove MD) Breast cancer screening by mammogram Well woman exam with routine gynecological exam Dermatitis Cellulitis Finger mass, right Major depression Dog bite Bronchitis Allergic rhinitis Surgical History Status post osteotomy H/O arthroscopy Family History Maternal Grandmother Breast cancer Father Substance abuse Other FH: mental illness Social History (Updated 07/18/24 @ 15:49 by BUSTER Nash) Housing: Apartment Alcohol intake: current Alcohol intake frequency: a few times a week Patient Tobacco Use Status: Current someday Tobacco user Tobacco use type: Cigarette Cigarette Packs Per Day: 0.25 Cigarettes Per Day: 1 Years Smoked: smokes 1 Q 2 a week. 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 1. Little interest or pleasure in doing things: not at all 2. Feeling down, depressed, or hopeless: several days 3. Trouble falling or staying asleep, or sleeping too much: nearly every day 4. Feeling tired or having little energy: nearly every day 5. Poor appetite or overeating: nearly every day 6. Feeling bad about yourself - or that you are a failure or have let yourself or your family down: several days 7. Trouble concentrating on things, such as reading the newspaper or watching television: not at all 8. Moving or speaking so slowly that other people could have noticed. Or the opposite - being so fidgety or restless that you have been moving around a lot more than usual: several days 9. Thoughts that you would be better off or of hurting yourself in some way: not at all Total score: 12 Depression Screening Interpretation: Positive Depression Screening Done: Yes Source: Developed by Drs. Greg De La Torre, Linda Cervantes, Jones Newton and colleagues, with an educational alexia from [employer]. Thrive Questionnaire Date Thrive assessed: 07/18/24 I am a: Patient What is your living situation today?: I have a steady place to live Within the past 12 months, did the food you bought not last and you didn't have the money to get more?: Never true Within the past 12 months, did you worry whether your food would run out before you got money to buy more?: Never true Do you have trouble paying for medicines?: No Do you have trouble getting transportation to medical appointments?: No Do you have trouble paying your heating and electricity bill?: No Do you have trouble taking care of your child, family member or friend?: No Do you have trouble with day-to-day activities such as bathing, preparing meals, shopping, managing finances, etc.?: No Are you currently unemployed and looking for a job?: No Are you interested in more education?: No Please select the resources that you would like help with: None Currently or been in a relationship where the following occur: No concerns reported THRIVE Score: 0 AUDIT C Alcohol Use Questionnaire (AUDIT-C) 1. How often do you have a drink containing alcohol?: 2-4 times a month 2. How many drinks containing alcohol do you have on a typical day when you are drinking?: 1 or 2 Total Score: 2 SHILPI-7 AMB Questionnaire SHILPI-7 Date SHILPI - 7 assessed: 07/18/24 Feeling nervous, anxious, or on edge: 1 = Several days Not being able to stop or control worryin = Several days Worrying too much about different things: 1 = Several days Trouble relaxin = More than half the days Being so restless that it is hard to sit still: 1 = Several days Becoming easily annoyed or irritable: 2 = More than half the days Feeling afraid as if something awful might happen: 0 = Not at all Total SHILPI-7 score (0-4 normal; 5-9 mild; 10-14 moderate; 15-21 severe): 8 Source: Developed by Drs. Greg De La Torre, Linda Cervantes, Jones Newton and colleagues, with an educational alexia from [employer]. Physical exam (Primary Care) Vital Signs: Last Vital Signs Temp 97.1 F 07/18/24 15:45 Pulse 82 07/18/24 15:45 BP 120/72 07/18/24 15:45 Pulse Ox 97 07/18/24 15:45 Oxygen Delivery Method Room Air 07/18/24 15:45 BMI result Body Mass Index 41.7 Tobacco/Smoking Status: Tobacco use Status Tobacco use date assessed 07/18/24 07/18/24 15:53 Patient Tobacco Use Status Current someday Tobacco 07/18/24 15:53 Tobacco use type Cigarette 07/18/24 15:53 e-Cigarette/Vaping Use Never Used 07/18/24 15:53 PHQ-9: PHQ-9 Score PHQ-9: Total score 12 07/18/24 16:07 Depression Screening Interpretation: Positive Thrive Assessment: Date of Thrive Assessment Date Thrive assessed 07/18/24 07/18/24 15:53 Currently or been in a relationship where the following occur: No concerns reported Const General: alert; No acute distress Eyes Conjunctivae: conjunctivae normal Resp Auscultation: clear to auscultation bilaterally Cardio Rate: regular rate Rhythm: regular rhythm GI Inspection: Yes normal to inspection Back/Spine/Pelvis Back/spine/pelvis image: 2 1. 1 cm open wound with minimal discharge and mild redness on the right gluteal area Extrem General: Yes normal to inspection and No edema Hand/finger images: 2 1. Right 3rd finger swollen mass mild redness no discharge coming out Coding Level of Care Code Est Pt Level 4 (98731) Diagnoses Gluteal abscess L02.31 Impaired fasting blood sugar R73.01 Morbid (severe) obesity due to excess calories E66.01 Generalized anxiety disorder F41.1 Mucoid cyst of joint M67.40 Bilateral knee pain M25.561; M25.562 Vision changes H53.9 Breast cancer screening by mammogram Z12.31 Low back pain radiating to right lower extremity M54.50; M79.604 Cervical cancer screening Z12.4 Assessment & Plan Assessment & Plan (1) Gluteal abscess: Comment: Right Code(s): L02.31 - Cutaneous abscess of buttock Category: Medical Plan: Patient was prescribed an antibiotic the previous time (2) Impaired fasting blood sugar: Code(s): R73.01 - Impaired fasting glucose Category: Medical Plan: Decrease the amount of carbohydrate intake, pasta, bread, rice and potatoes are all sugar and that is aside from all the sweet stuff, remember that fruits are good but they are Sweet also. (3) Morbid (severe) obesity due to excess calories: Code(s): E66.01 - Morbid (severe) obesity due to excess calories Category: Medical Plan: Diet and exercise (4) Generalized anxiety disorder: Code(s): F41.1 - Generalized anxiety disorder Category: Medical Plan: Continue with medication as needed (5) Mucoid cyst of joint: Comment: Right middle finger Code(s): M67.40 - Ganglion, unspecified site Category: Medical (6) Bilateral knee pain: Code(s): M25.561 - Pain in right knee; M25.562 - Pain in left knee Category: Medical (7) Vision changes: Code(s): H53.9 - Unspecified visual disturbance Category: Medical (8) Breast cancer screening by mammogram: Code(s): Z12.31 - Encounter for screening mammogram for malignant neoplasm of breast Category: Medical (9) Low back pain radiating to right lower extremity: Code(s): M54.50 - Low back pain, unspecified; M79.604 - Pain in right leg Category: Medical (10) Cervical cancer screening: Comment: 01/27/2022 Pap is negative with negative HPV Code(s): Z12.4 - Encounter for screening for malignant neoplasm of cervix Category: Medical Plan History of Present Illness The patient is a 43-year-old female presenting for a follow-up concerning her gluteal abscess and elevated blood sugar. She was previously treated with antibiotics for a gluteal abscess and reports a reduction in size, although intermittent fluid accumulation remains an issue. The patient reports ongoing elevation in blood sugar levels, managed through diet and exercise. 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 The patient also reports occasional irritation of a mucoid cyst on her finger, particularly around her menstrual cycle. Her history of knee surgeries, including bilateral arthroscopy and tibial osteotomy, has resulted in ongoing soreness and occasional swelling. Additionally, she experiences sciatica symptoms, largely due to extended periods standing and walking. Health Maintenance - Referral for bilateral knee x-rays to evaluate structural integrity and potential arthritic changes. - Ophthalmology referral for comprehensive eye examination. - Update mammogram as part of routine cancer screening. - Discussion on diabetes management with emphasis on diet and lifestyle modification. - Consideration of weight loss medication, pending insurance evaluation. 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 - Reports challenges in adhering to dietary choices due to demanding work schedule. - Experiences high physical activity levels, approximately 10,000 to 20,000 steps per shift. - Underwent consultation with a traffic rate clerk; received dietary guidelines. - Lives with a significant other who provides some psychosocial support. Review of Systems - Musculoskeletal: Reports intermittent knee soreness following prolonged standing. - Nervous System: Reports occasional sciatica-related discomfort, primarily in one leg. Physical Exam - Dermatologic- Right third finger shows mild redness with no discharge. Right gluteal area has a 1 cm open wound with minimal discharge and mild redness. Results Plan I will continue monitoring the patient's gluteal abscess and manage elevated blood sugar through lifestyle modifications with the potential addition of medication. An urgent surgical consultation will be sought for the gluteal abscess. I will further assess the possibility of Zepbound for weight management. I will also address the patient?s mucoid cyst and sciatica symptoms with the appropriate referrals. Blood tests have been ordered for more extensive evaluation of her blood sugar. Knee x-rays are ordered to assess structural issues post-surgery, and I will facilitate her referrals to ophthalmology and HIGH SCHOOL COMPUTER SCIENCE TEACHER. Her mammogram will be updated to ensure continued health maintenance. Patient was informed and verbally consented to the use of an ambient scribe for clinic note documentation during this visit. Discussion Notes I discussed with the patient her current issues and management options, including monitoring the gluteal abscess size and fluid accumulation and the potential for surgical removal. We covered elevated blood sugar levels and the importance of continued dietary and exercise interventions. The potential use of Zepbound was discussed as a weight loss strategy, with availability and insurance as considerations. We addressed the mucoid cyst plan for removal, and chiropracty for managing sciatica. I ordered fasting blood work and emphasized the importance of the knee x-rays, and referrals for ophthalmology and updated mammogram to maintain overall health. Additionally, I explained the next steps for an HIGH SCHOOL COMPUTER SCIENCE TEACHER referral. I emphasized the importance of timely follow-ups and provided anticipatory guidance regarding possible outcomes. Patient Instructions - Follow up with the surgeon regarding the gluteal abscess. - Continue current diabetes management plan with diet and exercise; introduce medication as deemed necessary. - Schedule and attend appointments for bloodwork, knee x-rays, and any referred specialists. - Arrange for a chiropractic consultation for sciatica management if needed. - Undergo routine screenings including eye exam and mammogram for health maintenance. - Ensure fasting prior to the scheduled blood test. - Report any new or worsening symptoms promptly. - Discuss with your insurance regarding coverage for potential weight loss medications. Orders: Orders 2 Hemoglobin A1c Today R73.01 - Impaired fasting glucose Complete Blood Count Auto Diff Today R73.01 - Impaired fasting glucose Lipid Panel Today E78.00 - Pure hypercholesterolemia, unspecified, R73.01 - Impaired fasting glucose Thyroid Stimulating Hormone Today R73.01 - Impaired fasting glucose Free T4 (Free Thyroxine) Today R73.01 - Impaired fasting glucose Vitamin B12 and Folate Today R73.01 - Impaired fasting glucose Vitamin D 25-OH Total Today R73.01 - Impaired fasting glucose Comprehensive Met. Panel Today R73.01 - Impaired fasting glucose XR Knee Scott 1or 2V Today M25.561 - Pain in right knee, M25.562 - Pain in left knee MM tomosynthesis screening BI Today Z12.31 - Encounter for screening mammogram for malignant neoplasm of breast Referrals 2 Ophthalmology Referral H53.9 - Unspecified visual disturbance General Surgery Referral L02.31 - Cutaneous abscess of buttock, M67.40 - Ganglion, unspecified site Chiropractic Referral M54.50 - Low back pain, unspecified, M79.604 - Pain in right leg HIGH SCHOOL COMPUTER SCIENCE TEACHER Referral Z12.4 - Encounter for screening for malignant neoplasm of cervix Medications: New 2 tirzepatide (weight loss) (Zepbound) for 4 weeks 2.5 mg (0.5 mL) subcut QWEEK 2 mL 1RF E66.01 - Morbid (severe) obesity due to excess calories
[2024-07-18 15:45] VITALS: BP 120/72; PULSE 82; TEMP 36.2; O2SAT 97; BMI 41.7
== END 2024-07-18 16:27 | disposition home or self-care (01) ==
LOC: HO.HMCH 15:24
PROVIDERS: PCP Internal Medicine; Visit Provider Internal Medicine
DX: R73.01 Impaired fasting glucose (principal); L02.31 Cutaneous abscess of buttock; E66.01 Morbid (severe) obesity due to excess calories; Z68.41 Body mass index [BMI] 40.0-44.9, adult; F41.1 Generalized anxiety disorder; M67.40 Ganglion, unspecified site; M25.561 Pain in right knee; M25.562 Pain in left knee; H53.9 Unspecified visual disturbance; Z12.31 Encounter for screening mammogram for malignant neoplasm of breast; M54.50 Low back pain, unspecified; M79.604 Pain in right leg

== ENCOUNTER 2024-08-01 14:14 | Outpatient (AMB) | payer BC, SELFPAY ==
--- NOTE | 2024-08-01 14:15 | MHC.OFFVIS ---
Vital Signs 08/01/24 14:23 Height 5 ft 5 in Weight 256 lb 2 oz BMI 42.6 BP 131/74 Blood Pressure Location Lt brachial Position Sitting Pulse 85 Intake Visit Reasons: Cutaneous abscess buttock Intake Note: Patient is seen in office for evaluation of a cutaneous abscess of the buttock. Pt c/o: onset one yr, had a bikini wax and since has an abscess, continued discharge, had antibiotic in the past PCP:07/18/24 ER: 11/11/23 Guest Service Host Required: No Accompanied by: Self / Same As Patient Allergies No Known Allergies Allergy (Verified 08/01/24 14:22) HPI Comments Details: 43-year-old female patient returning to the office for evaluation of a perianal cyst which has been present for several years and continuously drains. She denies any significant pain but does feel an area of hardness with discharge. Denies fever, chills, but does report diarrhea approximately 4-5 times daily. She denies any previous surgery in this location. She was never been diagnosed with Crohn's disease or ulcerative colitis but has never undergone a workup for the diarrhea. [facility] Medical History Diarrhea Breast cancer screening by mammogram Well woman exam with routine gynecological exam Dermatitis Cellulitis Finger mass, right Major depression Dog bite Bronchitis Allergic rhinitis Surgical History Status post osteotomy H/O arthroscopy Family History Maternal Grandmother Breast cancer Father Substance abuse Other FH: mental illness Social History Housing: Apartment Alcohol intake: current Alcohol intake frequency: a few times a week Patient Tobacco Use Status: Current someday Tobacco user Tobacco use type: Cigarette Cigarette Packs Per Day: 0.25 Cigarettes Per Day: 1 Years Smoked: smokes 1 Q 2 a week. 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 Cognitive needs: No Hearing needs: No Vision needs: Yes (Glasses) Female Reproductive History Menstrual Age of Menarche: 14 Review of Systems Const All systems reviewed & are unremarkable except as noted in HPI and below GI Denies fecal incontinence, Reports diarrhea, Denies nausea and Denies vomiting Physical Exam Vital Signs: Last Vital Signs Pulse 85 08/01/24 14:23 BP 131/74 08/01/24 14:23 BMI result Body Mass Index 42.6 Const General: no acute distress Nutritional Appearance: well nourished Orientation/consciousness: patient oriented x3 Limitations: no limitations Resp Effort & Inspection: normal respiratory effort, no audible wheezes, no cough and no respiratory distress GI Inspection: Yes normal to inspection Palpation (GI): Soft to palpation, nontender, no guarding and not rigid Back/Spine/Pelvis Other: Anal examination reveals a fistulous track at the 02:00 location with an external opening approximately 3 cm from the anal verge with purulence discharge on palpation. No evidence of undrained abscess. Findings suggestive of an anal fistula. Back/spine/pelvis image: 1. Fistula Neuro General: patient oriented x3 Assessment & Plan Assessment & Plan (1) Diarrhea: Code(s): R19.7 - Diarrhea, unspecified Category: Medical Qualifiers: Diarrhea type: unspecified type Qualified Code(s): R19.7 - Diarrhea, unspecified (2) Mucoid cyst of joint: Comment: Right middle finger Code(s): M67.40 - Ganglion, unspecified site Category: Medical Plan 43-year-old female patient presenting for evaluation of a perianal cyst. On examination the patient has evidence of an anal fistula with a track extending past the anal verge. The exact extent and height of the fistula is difficult to tell from external examination. Patient also has persistent diarrhea for many years which is suspicious for inflammatory bowel disease. I recommended further evaluation with a CT abdomen and pelvis as well as an exam under anesthesia. If she does indeed have evidence of inflammatory bowel disease she may benefit from a seton placement. I reviewed the procedure, risks and alternatives and she consents to an exam under anesthesia and possible fistulotomy, possible seton placement. Orders: Orders CT abdomen pelvis wo IV con Today K60.30 - Anal fistula, unspecified, R19.7 - Diarrhea, unspecified Referrals Hand Surgery Referral M67.40 - Ganglion, unspecified site Coding Level of Care Code Est Pt Level 4 (33018) Diagnoses Diarrhea, unspecified type R19.7 Diarrhea type: unspecified type Mucoid cyst of joint M67.40
[2024-08-01 14:23] VITALS: BP 131/74; PULSE 85; BMI 42.6
== END 2024-08-01 14:54 | disposition home or self-care (01) ==
LOC: HO.HGS 14:14
PROVIDERS: PCP Internal Medicine; Referring Provider Internal Medicine; Visit Provider Surgery
DX: R19.7 Diarrhea, unspecified (principal); M67.40 Ganglion, unspecified site
CPT/HCPCS: 99214

== ENCOUNTER → 2024-08-01 14:14 | Outpatient (BNVA) | payer BC, SELFPAY | PROVIDERS: PCP Internal Medicine; Referring Provider Internal Medicine; Visit Provider Surgery ==

== ENCOUNTER 2024-08-23 09:28 | Outpatient (AMB) | payer BC, SELFPAY ==
--- NOTE | 2024-08-23 09:32 | A.OFFPC_ITS ---
Vital Signs 3 08/23/24 09:33 Height 5 ft 5 in Weight 245 lb BMI 40.8 BP 120/64 Blood Pressure Location Lt brachial Position Sitting Pulse 93 Pulse Source Pulse Oximeter Temp 97.1 F Temp Source Temporal Artery Scan Pulse Oximetry (%) 98 Oxygen Delivery Method Room Air Intake Visit Reasons: Lump on thigh Intake Note: Patient is here to follow up on Lump on thigh. Power Tong Operator Required: No Pick Pulling Machine Operator: Not Required per policy Accompanied by: Self / Same As Patient Allergies No Known Allergies Allergy (Verified 08/23/24 09:35) Medication List - Last Reviewed 08/23/24 by BUSTER Nash barium sulfate 2%(w/v) (Readi-Cat 2) 900 mL PO ONCE cetirizine (Zyrtec) 10 mg PO DAILY PRN tirzepatide (weight loss) (Zepbound) 2.5 mg (0.5 mL) subcut QWEEK tirzepatide (weight loss) (Zepbound) 2.5 mg (0.5 mL) subcut QWEEK Tobacco use date assessed: 08/23/24 Dental Screening Dental Screen Date: 07/18/24 HPI Lump on thigh 2 HPI0 Details 43 year old female with past history of generalized anxiety disorder, impaired glucose tolerance, morbid obesity last seen 07/2024 coming in for acute problem. Presenting with a lump in the right thigh. The lump has been present for a year and has enlarged from initial small dimensions to those exceeding the size of a dime. It is not painful and has no associated skin changes. The patient has a known history of allergic rhinitis. Over the past week, she reports symptoms possibly indicative of a sinus infection with severe sinus pressure and congestion, primarily on the right side. Her allergy symptoms persist despite the use of Claritin, with congestion becoming pronounced every couple of days. No fevers have been reported, and there is associated severe sinus pressure causing blurred vision at times. [facility] Medical History Diarrhea Breast cancer screening by mammogram Well woman exam with routine gynecological exam Dermatitis Cellulitis Finger mass, right Major depression Dog bite Bronchitis Allergic rhinitis Surgical History Status post osteotomy H/O arthroscopy Family History Maternal Grandmother Breast cancer Father Substance abuse Other FH: mental illness Social History Housing: Apartment Alcohol intake: current Alcohol intake frequency: a few times a week Patient Tobacco Use Status: Current someday Tobacco user Tobacco use type: Cigarette Cigarette Packs Per Day: 0.25 Cigarettes Per Day: 1 Years Smoked: smokes 1 Q 2 a week. 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 1. Little interest or pleasure in doing things: not at all 2. Feeling down, depressed, or hopeless: several days 3. Trouble falling or staying asleep, or sleeping too much: several days 4. Feeling tired or having little energy: several days 5. Poor appetite or overeating: several days 6. Feeling bad about yourself - or that you are a failure or have let yourself or your family down: several days 7. Trouble concentrating on things, such as reading the newspaper or watching television: several days 8. Moving or speaking so slowly that other people could have noticed. Or the opposite - being so fidgety or restless that you have been moving around a lot more than usual: several days 9. Thoughts that you would be better off or of hurting yourself in some way: not at all Total score: 7 Depression Screening Interpretation: Positive Depression Screening Done: Yes Source: Developed by Drs. Greg De La Torre, Linda Cervantes, Jones Newton and colleagues, with an educational alexia from [employer]. Thrive Questionnaire Date Thrive assessed: 07/18/24 I am a: Patient What is your living situation today?: I have a steady place to live Within the past 12 months, did the food you bought not last and you didn't have the money to get more?: Sometimes True Within the past 12 months, did you worry whether your food would run out before you got money to buy more?: Sometimes True Do you have trouble paying for medicines?: Yes Do you have trouble getting transportation to medical appointments?: No Do you have trouble paying your heating and electricity bill?: Yes Do you have trouble taking care of your child, family member or friend?: No Do you have trouble with day-to-day activities such as bathing, preparing meals, shopping, managing finances, etc.?: Yes Are you currently unemployed and looking for a job?: No Are you interested in more education?: No Please select the resources that you would like help with: None Currently or been in a relationship where the following occur: No concerns reported THRIVE Score: 3 AUDIT C Alcohol Use Questionnaire (AUDIT-C) 1. How often do you have a drink containing alcohol?: 2-3 times a week 2. How many drinks containing alcohol do you have on a typical day when you are drinking?: 1 or 2 3. How often do you have six or more drinks on one occasion?: Never Total Score: 3 SHILPI-7 AMB Questionnaire SHILPI-7 Date SHILPI - 7 assessed: 07/18/24 Feeling nervous, anxious, or on edge: 2 = More than half the days Not being able to stop or control worryin = More than half the days Worrying too much about different things: 2 = More than half the days Trouble relaxin = More than half the days Being so restless that it is hard to sit still: 2 = More than half the days Becoming easily annoyed or irritable: 2 = More than half the days Feeling afraid as if something awful might happen: 2 = More than half the days Total SHILPI-7 score (0-4 normal; 5-9 mild; 10-14 moderate; 15-21 severe): 14 Source: Developed by Drs. Greg De La Torre, Linda Cervantes, Jones Newton and colleagues, with an educational alexia from [employer]. Review of Systems Const Denies body aches, Denies chills, Denies fever(s), Reports headache(s) and Denies poor appetite Eyes Reports no additional complaints ENT Denies dizziness, Reports facial pain, Reports headache(s), Reports nasal congestion, Reports post nasal drip and Reports sinus pain Card Denies chest pain, Denies lightheadedness and Denies dyspnea Resp Denies cough and Denies dyspnea GI Denies nausea and Denies vomiting Reports no additional complaints Musc Reports no additional complaints and Denies abnormal gait Skin/Breast Reports system reviewed and no additional complaints, except as documented Neuro Denies abnormal gait, Denies dizziness and Reports headache(s) Psych Reports no additional complaints Physical exam (Primary Care) Tobacco/Smoking Status: Tobacco use Status Tobacco use date assessed 07/18/24 07/18/24 15:53 Patient Tobacco Use Status Current someday Tobacco 07/18/24 15:53 Tobacco use type Cigarette 07/18/24 15:53 e-Cigarette/Vaping Use Never Used 07/18/24 15:53 Depression Screening Interpretation: Positive Thrive Assessment: Date of Thrive Assessment Date Thrive assessed 07/18/24 07/18/24 15:53 Currently or been in a relationship where the following occur: No concerns reported Const General: cooperative, healthy appearing, comfortable and no acute distress Orientation/consciousness: patient oriented x3 HENMT Head: Yes normocephalic Ears: hearing grossly normal bilaterally General nose exam: Normal external nose present Eyes General: appearance normal, both eyes and all related structures Conjunctivae: conjunctivae normal Neck Neck: Yes full ROM and Yes no lymphadenopathy Resp Effort & Inspection: normal respiratory effort Auscultation: clear to auscultation bilaterally, no crackles, no rales, no rhonchi and no wheezes Cardio Rate: regular rate Rhythm: regular rhythm Skin General skin exam: no rashes or lesions noted Full body images: 2 1. deep, soft, small, nontender mass with smooth borders Neuro General: patient oriented x3 Gait exam (Neuro): Normal gait present Extrem General: Yes normal to inspection, Yes full ROM and No edema Psych Affect: normal affect Attitude: cooperative Insight: Good insight present (Psych) Judgement: Good judgement present (Psych) Coding Level of Care Code Est Pt Level 3 (37692) Diagnoses Mass of right thigh R22.41 Sinus infection J32.9 Assessment & Plan Assessment & Plan (1) Mass of right thigh: Code(s): R22.41 - Localized swelling, mass and lump, right lower limb Category: Medical Plan: The plan involves ordering an ultrasound to evaluate the lump in the patient's right thigh, suspected to be a lipoma, and considering surgical evaluation if necessary. Ultrasound has been ordered and plan to follow up at next visit or sooner if new problems arise. (2) Sinus infection: Code(s): J32.9 - Chronic sinusitis, unspecified Category: Medical Plan: Advised patient to continue the use of vxcw-dio-poethuy antihistamines and saline spray. Given severity of symptoms plan to treat with azithromycin. Plan This note was constructed using voice recognition software. While every effort has been made to ensure accuracy and space operations officer, still areas may have been included sometimes these areas may affect the content or meeting of the given symptoms. Total time spent caring for the patient today was 20 minutes. This includes time spent before the visit reviewing the chart, time spent during the visit, and time spent after the visit and documentation. Patient was informed and verbally consented to the use of an ambient scribe for clinic note documentation during this visit. Orders: Orders 2 US Extremity Nonvas Limited RT Today R22.41 - Localized swelling, mass and lump, right lower limb Medications: New 2 azithromycin For 250 mg dose pack: take 500 mg today (day 1), then 250 mg for 4 days (days 2-5) PO 6 tabs 0RF Refilled 2 tirzepatide (weight loss) (Zepbound) for 4 weeks 2.5 mg (0.5 mL) subcut QWEEK 2 mL 1RF E66.01 - Morbid (severe) obesity due to excess calories
[2024-08-23 09:33] VITALS: BP 120/64; PULSE 93; TEMP 36.2; O2SAT 98; BMI 40.8
== END 2024-08-23 09:59 | disposition home or self-care (01) ==
LOC: HO.HMCH 09:29
PROVIDERS: PCP Internal Medicine
DX: R22.41 Localized swelling, mass and lump, right lower limb (principal); J32.9 Chronic sinusitis, unspecified

== ENCOUNTER → 2024-08-23 09:28 | Outpatient (BNVA) | payer BC, SELFPAY | PROVIDERS: PCP Internal Medicine ==

== ENCOUNTER 2024-08-29 13:07 | Outpatient (REF) | payer BC, SELFPAY ==
--- NOTE | ~2024-08-29 | CT_ITS ---
CLINICAL HISTORY: K60.30 - Anal fistula, unspecified --- Additional Notes or Special Instructions: An al fistula and diarrhea, evaluate for inflammatory bowel disease CT abdomen and pelvis without contrast Comparison: None Findings: No consolidation or effusion. A 3 cm cyst is seen at the hepatic dome. Several other small hypodense lesions are noted consistent with small cysts or hemangiomata. There is cholelithiasis. The liver in the rest of the solid organs are unremarkable. There a few scattered colonic diverticula. No definite anal fistula is noted. The appendix is normal. The rest of the GI tract is unremarkable. There may be a 1.2 cm right vaginal cyst. No acute fracture. IMPRESSION: 1. No definite anal fistula or other acute pathology of the GI tract. There are scattered colonic diverticula. Anal fistula would be best evaluated with a contrasted CT or MRI. 2. Possible 1.2 cm right vaginal cyst. 3. Multiple hypodense hepatic lesions likely benign and likely represent a combination of cysts and hemangiomata. Consider obtaining a dedicated hepatic protocol MRI to evaluate further. 4. Cholelithiasis. This document has been electronically signed by: Keith Enrique MD on 08/30/2024 11:44:53
== END 2024-08-29 13:08 | disposition home or self-care (01) ==
LOC: HO.CT 13:07
PROVIDERS: PCP Internal Medicine; Visit Provider Surgery
DX: K60.30 Anal fistula, unspecified (principal); R19.7 Diarrhea, unspecified
CPT/HCPCS: 74176

== ENCOUNTER → 2024-08-29 13:09 | Outpatient (BNV) | payer BC, SELFPAY | PROVIDERS: PCP Internal Medicine; Visit Provider Radiology Diagnostic Radiology | DX: K80.20 Calculus of gallbladder without cholecystitis without obstruction (principal); K76.89 Other specified diseases of liver | CPT/HCPCS: 74176 ==

== ENCOUNTER 2024-09-05 10:57 | Outpatient (REF) | payer BC, SELFPAY | END 2024-09-05 10:58 | disposition home or self-care (01) | LOC: HO.MAMMO 10:57 | PROVIDERS: PCP Internal Medicine; Visit Provider Internal Medicine | DX: Z12.31 Encounter for screening mammogram for malignant neoplasm of breast (principal) | CPT/HCPCS: 77063; 77067 ==

== ENCOUNTER → 2024-09-05 11:00 | Outpatient (BNV) | payer BC, SELFPAY | PROVIDERS: PCP Internal Medicine; Visit Provider Internal Medicine | DX: Z12.31 Encounter for screening mammogram for malignant neoplasm of breast (principal) | CPT/HCPCS: 77063; 77067 ==

== ENCOUNTER → 2024-09-08 08:31 | Outpatient (BNVA) | payer BC, SELFPAY | PROVIDERS: PCP Internal Medicine; Visit Provider Physician Assistant Surgical ==

== ENCOUNTER 2024-09-20 07:04 | Day surgery (SDC) | payer BC, SELFPAY ==
[2024-09-18 08:55] VITALS: BMI 42.6
[2024-09-20] VITALS (7 sets, daily range): BP systolic 109–133; BP diastolic 65–79; PULSE 63–83; RESP 12–16; TEMP 36.1–36.7; O2SAT 96–98; BMI 39.6
[2024-09-20 07:54] LABS: UPreg QC Valid YES; Urine Pregnancy NEGATIVE (NEGATIVE)
[2024-09-20] MEDS: Lactated Ringers 1,000 ML 100 ML IVCONT (08:01)
--- NOTE | 2024-09-20 08:58 | P.HPSUR_ITS ---
Pre-Procedural Eval Section A - 24 Hr Update-Section A only Date of Service: 09/20/24 The patient is an INPATIENT: No Changes since office visit: Yes Patient answered all questions; No Cold of Flu in the past 2 weeks, No New Medical Problems and No Changes in Medication The patient has been examined within 24 hours of the surgical procedure. The History & Physical has been completed within 30 days and I have reviewed it.: No Section B - Complete if H&P > 30 days Chief Complaint: Persistent anal fistula Details of Present Illness: No change in anal symptoms Relevant Family History (Specify if Yes): No Relevant Social History: None Present Medications: see Short Stay Collaborative assessment Medical History: No relevant PMH History of Previous Operations: No relevant previous surgery Allergies: Allergies Allergy/AdvReac Type Severity Reaction Status Date / Time No Known Allergies Allergy Verified 09/20/24 07:22 Review of Systems Sugical H&P ROS: Negative: Constitution, Cardiovascular, Respiratory, Neurological, Psychiatric, Hem-Onc, Allergic/Immunologic, Gastrointestinal, Genitourinary, Musculoskeletal, Integumentary, Endocrine and Eyes/Ears/Nose/ Throat Exam Surgical H&P Exam: Normal: HEENT, Normal: Heart, Normal: Lungs, Normal: Extremities, Normal: Abdomen, Normal: Skin and Normal: Neurological Plan Diagnosis/Plan: Unchanged I have reviewed the history and physical and performed a pertinent physical examination on my patient. No changes have occurred unless specified. Time Spent With Patient Time: Total time managing care of this patient today ____ minutes.
--- NOTE | 2024-09-20 09:13 | HO.ANESPROP2 ---
Documented by User: Batsheva Bermeo NP 09/18/24 15:00 HPI - Anesthesia Eval Consult details Narrative: 43yo F for EUA,possible anal fistulotomy,possible seton placement Anesthesia Pre-Procedure Meds Is the patient on any of the following meds?: GLP1/DPP4 PMFSH Active Problems Active Problems: All Active Problems Morbid obesity (Acute) Mass of right thigh (Acute) Anal fistula (Acute) Low back pain radiating to right lower extremity (Acute) Vision changes (Acute) Bilateral knee pain (Acute) Morbid (severe) obesity due to excess calories (Acute) Gluteal abscess (Acute) Sinus infection (Acute) Tinnitus, bilateral (Acute) Iron deficiency (Acute) Folic acid deficiency (Acute) Breast cancer screening by mammogram (Acute) Diarrhea (Acute) Annual physical exam (Acute) Plantar fasciitis, bilateral (Acute) Impaired fasting blood sugar (Acute) Mucoid cyst of joint (Acute) Cervical cancer screening (Acute) Metrorrhagia (Acute) Obesity (Acute) Generalized anxiety disorder (Acute) Past Medical History Medical History Diarrhea Breast cancer screening by mammogram Well woman exam with routine gynecological exam Dermatitis Cellulitis Finger mass, right Major depression Dog bite Bronchitis Allergic rhinitis Family History Family History Maternal Grandmother Breast cancer Father Substance abuse Depression Alcoholic Mother No problems noted. Son No problems noted. Other FH: mental illness Surgical History Surgical History Status post osteotomy H/O arthroscopy Social History Social History Housing: Apartment Are you a primary post acute care nurse practitioner to a significant other at home: No Do you presently have visiting nurse or other home services: No Alcohol intake: current Alcohol intake frequency: a few times a week Patient Tobacco Use Status: Current someday Tobacco user Tobacco use type: Cigarette Cigarette Packs Per Day: 0.25 Cigarettes Per Day: 1 Years Smoked: smokes 1 Q 2 a week. weed also e-Cigarette/Vaping Use: Never Used Second Hand Smoke Exposure: Yes Use of substances other than those prescribed or required for medical reasons: Yes Have you been hit, kicked, punched, or otherwise hurt by someone within the past year? 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 Cognitive needs: No Hearing needs: No Vision needs: Yes (Glasses) Meds Allergies Allergy/AdvReac Type Severity Reaction Status Date / Time No Known Allergies Allergy Verified 09/20/24 07:22 Home Medications ?Medication ?Instructions ?Recorded ?Confirmed ?Last Taken ?Type cetirizine 10 mg tablet 10 mg PO DAILY PRN Allergic 09/20/24 09/20/24 Unknown History Symptoms melatonin 3 mg tablet 3 mg PO BEDTIME PRN Sleep 09/20/24 09/20/24 Unknown History Exam Height,Weight and Vital Signs: Height 5 ft 5 in Weight 116.12 kg Assessment and Plan Assessment Anesthesia Assessment: Chart Reviewed Documented by User: Awilda Pitts DO 09/20/24 09:15 HPI - Anesthesia Eval Anesthesia Pre-Procedure Meds Is the patient on any of the following meds?: GLP1/DPP4 [facility] Past Medical History Medical History Diarrhea Breast cancer screening by mammogram Well woman exam with routine gynecological exam Dermatitis Cellulitis Finger mass, right Major depression Dog bite Bronchitis Allergic rhinitis Family History Family History Maternal Grandmother Breast cancer Father Substance abuse Depression Alcoholic Mother No problems noted. Son No problems noted. Other FH: mental illness Family history of problems with anesthesia: No Surgical History Surgical History Status post osteotomy H/O arthroscopy History of Problems with Anesthesia: No Social History Social History Housing: Apartment Are you a primary post acute care nurse practitioner to a significant other at home: No Do you presently have visiting nurse or other home services: No Alcohol intake: current Alcohol intake frequency: a few times a week Patient Tobacco Use Status: Current someday Tobacco user Tobacco use type: Cigarette Cigarette Packs Per Day: 0.25 Cigarettes Per Day: 1 Years Smoked: smokes 1 Q 2 a week. weed also e-Cigarette/Vaping Use: Never Used Second Hand Smoke Exposure: Yes Use of substances other than those prescribed or required for medical reasons: Yes Have you been hit, kicked, punched, or otherwise hurt by someone within the past year? 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 Cognitive needs: No Hearing needs: No Vision needs: Yes (Glasses) Meds Allergies Allergy/AdvReac Type Severity Reaction Status Date / Time No Known Allergies Allergy Verified 09/20/24 07:22 Home Medications ?Medication ?Instructions ?Recorded ?Confirmed ?Last Taken ?Type cetirizine 10 mg tablet 10 mg PO DAILY PRN Allergic 09/20/24 09/20/24 Unknown History Symptoms melatonin 3 mg tablet 3 mg PO BEDTIME PRN Sleep 09/20/24 09/20/24 Unknown History Exam Exam Date and Time: 09/20/24 0914 Height,Weight and Vital Signs: Height 5 ft 5 in Weight 116.12 kg Height 5 ft 5 in Weight 108 kg Vital Signs Temperature 98.0 F 09/20/24 07:27 Pulse Rate 78 09/20/24 07:27 Respiratory Rate 14 09/20/24 07:27 Blood Pressure 133/79 09/20/24 07:27 Pulse Oximetry 98 09/20/24 07:27 Oxygen Delivery Method Room Air 09/20/24 07:27 Temperature 98.0 F 09/20/24 07:27 Pulse Rate 78 09/20/24 07:27 Respiratory Rate 14 09/20/24 07:27 Blood Pressure 133/79 09/20/24 07:27 Pulse Oximetry 98 09/20/24 07:27 Oxygen Delivery Method Room Air 09/20/24 07:27 Airway Mallampati Class: II TM Dist: >3cm Neck ROM: Full Loose/Missing/Broken Teeth: No (patient denies any loose or broken teeth) Heart: S1S2 Lungs: CTAB Assessment and Plan Assessment Anesthesia Assessment: Anesthesia Plan Discussed and Chart Reviewed Final Anesthetic Review Family History of Problems with Anesthesia: No History of Problems with Anesthesia: No NPO: Yes ASA Class: II Final Preanesthetic Review: No Changes in Pt Med Stat, Meds/Allgs Chart Reviewed, Consent Obtained/Reviewed and Anes Risks/Benef Reviewed Patient Risk: Low Procedure Risk: Low Anesthetic Plan Anesthetic Plan: GA and Agree w/ Assess. and Plan Disposition: Standard PACU
--- NOTE | 2024-09-20 10:13 | P.OP_ITS ---
Operative Note Operative Note Date of Service: 09/20/24 Narrative: Preoperative diagnosis: Anal fistula Postoperative diagnosis: Anal fistula Procedure: Anal fistulotomy Surgeon: Marquise Terry MD Nurses Supervisor: Gregory Shelton PA-C, HARPREET Atkins Anesthesia: General LMA Indications for procedure: 43-year-old female patient with persistent drainage from a perianal cyst with a palpable tract suggestive of a perianal fistula Operative findings: Fistulous tract which extends to just about level of the anal verge with no internal opening identified. Specimen: None Estimated blood loss: 5 mL Complications: None Procedure details: Patient was brought to the OR and placed in a supine position. After administering general anesthesia the patient was placed in lithotomy position. The patient's perineum was then prepped with Betadine and draped in a sterile fashion. An anoscope was then inserted in the perianal skin and anal canal examined thoroughly. A perianal cyst was located in the 07:00 location when in the lithotomy position. A probe was then inserted in the tract extended towards the midline 06:00. Tract could not be extended beyond this level at the level of the anal verge. No internal opening could be identified. Local anesthesia was then infiltrated around the tract using the probe as a guide. A scalpel was then used to open up the fistulous tract. Once the tract was open further extension of the tract could not be identified. The tract did not involve the sphincter muscles. No other site channels were identified. A curette was then used to removed the granulation tissue from the tract. Wounds were then irrigated with saline solution. No attempt was made to close the fistulous track. Wounds were packed with Surgicel followed by fluff gauze and an ABD pad. The patient tolerated the procedure well. Sponge, instrument, and needle counts reported as correct. The patient was awoken from anesthesia and transferred to PACU in stable condition.
== END 2024-09-20 11:31 | disposition home or self-care (01) ==
PROVIDERS: Nurse Practitioner; PCP Internal Medicine; Visit Provider Surgery
PROC: (CPT 46270; principal; 2024-09-20 09:30)
DX: K60.30 Anal fistula, unspecified (principal); K62.89 Other specified diseases of anus and rectum; R19.7 Diarrhea, unspecified; E66.01 Morbid (severe) obesity due to excess calories; Z68.41 Body mass index [BMI] 40.0-44.9, adult; M67.441 Ganglion, right hand; Z79.899 Other long term (current) drug therapy; F17.210 Nicotine dependence, cigarettes, uncomplicated
CPT/HCPCS: 46270; 81025; J0131; J1100; J1885; J2003; J2250; J2405; J2704; J3010

== ENCOUNTER → 2024-09-20 07:04 | Outpatient (BNV) | payer BC, SELFPAY | PROVIDERS: PCP Internal Medicine; Visit Provider Surgery | DX: K60.30 Anal fistula, unspecified (principal) | CPT/HCPCS: 46270 ==

== ENCOUNTER 2024-10-02 15:12 | Outpatient (REF) | payer BC, SELFPAY ==
--- NOTE | ~2024-10-02 | US_ITS ---
CLINICAL HISTORY: R22.41 - Localized swelling, mass and lump, right lower limb --- Additional Notes o r Special Instructions: right lateral thigh Ultrasound right thigh Comparison: None Findings: 2.3 x 1.3 x 2.1 cm homogeneous solid lesion noted. Well-defined smooth margins are observed. Lesion is slightly hypoechoic relative to muscle. Finding most likely represents a lipoma. Recommend clinical follow-up to ensure stable size. Impression: Probable lipoma at site of interest Recommend continued clinical follow-up to ensure size stability This document has been electronically signed by: Ben New MD on 10/03/2024 00:45:28
== END 2024-10-02 15:13 | disposition home or self-care (01) ==
LOC: HO.US 15:12
PROVIDERS: PCP Internal Medicine
DX: R22.41 Localized swelling, mass and lump, right lower limb (principal)
CPT/HCPCS: 76882

== ENCOUNTER → 2024-10-02 15:14 | Outpatient (BNV) | payer BC, SELFPAY | PROVIDERS: PCP Internal Medicine; Visit Provider Radiology Diagnostic Radiology | DX: R22.41 Localized swelling, mass and lump, right lower limb (principal) | CPT/HCPCS: 76882 ==

== ENCOUNTER 2024-10-03 09:34 | Outpatient (AMB) | payer BC, SELFPAY ==
--- NOTE | 2024-10-03 09:44 | A.OFFVIS_ITS ---
Vital Signs 10/03/24 09:46 Weight 236 lb BP 112/79 Blood Pressure Location Rt brachial Position Sitting Pulse 82 Intake Visit Reasons: S/P poss. anal fistulotomy, poss. seton placement Intake Note: Patient is seen in office for post op assessment post anal fistulotomy. Pt c/o: surgical site oozing. Denies pain. Reports normal BM. 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 Operative findings revealed a collection which extended towards the rectum however no internal opening could be identified in the track ended just at the level of the anal verge. This was completely excised in the wounds left open. She returns today for postop wound check. She reports continued discharge from the site. She denies any persistent pain and reports normal bowel movements. [facility] Medical History Diarrhea Breast cancer screening by mammogram Well woman exam with routine gynecological exam Dermatitis Cellulitis Finger mass, right Major depression Dog bite Bronchitis Allergic rhinitis Surgical History History of anal fistulotomy (09/20/24) Status post osteotomy H/O arthroscopy Family History Maternal Grandmother Breast cancer Father Substance abuse Depression Alcoholic Mother No problems noted. Son No problems noted. Other FH: mental illness Social History Housing: Apartment Are you a primary career development manager to a significant other at home: No Do you presently have visiting nurse or other home services: No Alcohol intake: current Alcohol intake frequency: a few times a week Patient Tobacco Use Status: Current someday Tobacco user Tobacco use type: Cigarette Cigarette Packs Per Day: 0.25 Cigarettes Per Day: 1 Years Smoked: smokes 1 Q 2 a week. 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 There was no evidence of ongoing infection. Overall wounds are healing nicely. Neuro General: patient oriented x3 Assessment & Plan Assessment & Plan (1) Anal fistula: Comment: Anal fistulotomy September [address]24 Dr. Terry Code(s): K60.30 - Anal fistula, unspecified Category: Medical Plan 43-year-old female patient returning 2 weeks following anal fistulotomy. Her wounds are clean and nearly completely healed. She should continue with Sitz baths and local wound care. She will return in 1 month for wound check. She may return to work on 10/09/2024 without restrictions. Coding Level of Care Code Global (84187) Diagnoses Anal fistula K60.30
[2024-10-03 09:46] VITALS: BP 112/79; PULSE 82
== END 2024-10-03 09:55 | disposition home or self-care (01) ==
LOC: HO.HGS 09:35
PROVIDERS: PCP Internal Medicine; Visit Provider Surgery
DX: K60.30 Anal fistula, unspecified (principal)
CPT/HCPCS: 99024

== ENCOUNTER 2024-10-05 13:19 | Outpatient (AMB) | payer BC, SELFPAY ==
--- NOTE | 2024-10-05 13:25 | A.OFFVIS_ITS ---
Vital Signs 10/05/24 13:25 Weight 236 lb Intake Visit Reasons: OV-RT hand middle finger ganglion Intake Note: Soledad is a 43 year old left hand dominant female who presents today for a follow up visit for her right middle finger cyst. Last seen with Supa who wanted patient to be re-evaluated by Linda Genao/ Dr José and discuss surgical intervention. States cyst is very uncomfortable and causes pain at times. Allergies No Known Allergies Allergy (Verified 10/05/24 13:28) HPI HPI OV-RT hand middle finger ganglion: Details: Soledad is a 43 year old left hand dominant female who presents today for a follow up visit for her right middle finger cyst. Last seen with Supa who wanted patient to be re-evaluated by Linda Genao/ Dr José and discuss surgical intervention. States cyst is very uncomfortable and causes pain at times. Patient states that this cyst has been present for multiple years, has gradually grown over that time, and has never ruptured or shrunk. Patient denies any discharge, bleeding, or skin breakdown over the cyst. [facility] Medical History Diarrhea Breast cancer screening by mammogram Well woman exam with routine gynecological exam Dermatitis Cellulitis Finger mass, right Major depression Dog bite Bronchitis Allergic rhinitis Surgical History History of anal fistulotomy (09/20/24) Status post osteotomy H/O arthroscopy Family History Maternal Grandmother Breast cancer Father Substance abuse Depression Alcoholic Mother No problems noted. Son No problems noted. Other FH: mental illness Social History Housing: Apartment Are you a primary animal care attendant to a significant other at home: No Do you presently have visiting nurse or other home services: No Alcohol intake: current Alcohol intake frequency: a few times a week Patient Tobacco Use Status: Current someday Tobacco user Tobacco use type: Cigarette Cigarette Packs Per Day: 0.25 Cigarettes Per Day: 1 Years Smoked: smokes 1 Q 2 a week. 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 Neuro: Normal sensation of the tips of all digits of the right hand at this time Vascular: Cap refill brisk Pain: No tenderness to palpation about cyst on dorsal aspect of distal phalanx of right middle finger just proximal to the nail bed No pain with range of motion of the right hand ROM: Patient is able to make a closed fist and extend all digits of the right hand fully and without difficulty Skin: There is an approximately 0.5 cm in diameter cystic lesion noted just proximal to the nail bed of the dorsal right middle finger No lacerations or abrasions. General: No ecchymosis, erythema, or evidence of infection. Psych: Appears grossly normal Affect normal Attitude cooperative Assessment & Plan Assessment & Plan (1) Ganglion cyst of finger of right hand: Code(s): M67.441 - Ganglion, right hand Category: Medical Plan 1. Mucous cyst of right middle finger I educated the patient about the condition. I discussed both operative and nonoperative treatment options. The patient would like to proceed with surgery. The risks and benefits of operative treatment were discussed with the patient and the patient wishes to proceed with surgery. These risks include, but are not limited to, risk of damage to blood vessels, nerves, tendons, infection, recurrence, incomplete relief of preoperative symptoms, persistent pain, possible need for further surgery, and the risks associated with regional blocks and/or anesthesia. Plan is to take the patient to the operating room at some point in the next few weeks for the following procedures: 1. Right middle finger mucous cyst excision under local All of the preoperative paperwork including the consent was discussed today. All of the patient's questions were answered in the clinic today. The patient understands that they will be in contact with our instructor adjunct surgical technician to discuss scheduling their procedure. Patient denies diabetes, blood thinners, asthma, heart issues, lung issues, kidney issues, or current smoking. Coding Level of Care Code New Pt Level 4 (61337) Diagnoses Ganglion cyst of finger of right hand M67.441
== END 2024-10-05 13:52 | disposition home or self-care (01) ==
LOC: HO.HOS 13:19
PROVIDERS: PCP Internal Medicine
DX: M67.441 Ganglion, right hand (principal)
CPT/HCPCS: 99204

== ENCOUNTER 2024-10-13 08:13 | Outpatient (AMB) | payer BC, SELFPAY ==
--- NOTE | 2024-10-13 08:30 | MHC.OFFVISWM ---
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 *SEE COMMENTS*: Details: Start time: 8.20am, End time: 9am ?I spent 35 minutes speaking with the patient on the phone plus an additional 5 minutes reviewing and updating records for a total of 40 minutes HPI Comments Details: Previous weight loss efforts: Zepbound 2.5mg/wk (has lost 23lbs in 2 weeks) Wakes up: 7.30am, Sleeps: 2am Breakfast: 8am (yogurt or almonds, apple sauce or premade Premier protein shake) Lunch: erratic (tuna, salmon) Dinner: erratic (similar as lunch) Snacks: 10am, 4pm (cottage cheese or humus), after lunch (dry fruit chips) Exercise: None Beverages: Coffee: none, tea: none, soda: diet Coke, juice: none, ETOH: 2-3/wk (1 beer x3/wk) PFSH Medical History Diarrhea Breast cancer screening by mammogram Well woman exam with routine gynecological exam Dermatitis Cellulitis Finger mass, right Major depression Dog bite Bronchitis Allergic rhinitis Surgical History History of anal fistulotomy (09/20/24) Status post osteotomy H/O arthroscopy Family History Maternal Grandmother Breast cancer Father Substance abuse Depression Alcoholic Mother No problems noted. Son No problems noted. Other FH: mental illness Social History (Reviewed 10/05/24 @ 13:29 by PILI Hurley Housing: Apartment Are you a primary daycare assistant to a significant other at home: No Do you presently have visiting nurse or other home services: No Alcohol intake: current Alcohol intake frequency: a few times a week Patient Tobacco Use Status: Current someday Tobacco user Tobacco use type: Cigarette Cigarette Packs Per Day: 0.25 Cigarettes Per Day: 1 Years Smoked: smokes 1 Q 2 a week. 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 Cognitive needs: No Hearing needs: No Vision needs: Yes (Glasses) Female Reproductive History Menstrual Age of Menarche: 14 Telehealth Telehealth Telehealth Platform: Telephone Location of provider rendering services: practice address Location of patient: address on file Patient Identification confirmed using: Name, : Yes Telehealth method: voice only Patient verbally consented to treatment: Yes Patient verbally consented to billing insurance company: Yes Patient informed of any privacy concerns related to visit: Yes Minutes spent on Phone/Video with Pt.: 40 Assessment & Plan Assessment & Plan (1) Obesity: Code(s): E66.9 - Obesity, unspecified Category: Medical Qualifiers: Obesity type: due to excess calories Obesity classification: adult class 2 (BMI 35 - 39.9) Serious obesity comorbidity presence: without serious comorbidity Body mass index: BMI 37.0-37.9 Qualified Code(s): E66.812 - Obesity, class 2; E66.09 - Other obesity due to excess calories; Z68.37 - Body mass index [BMI] 37.0-37.9, adult Plan: 1. Continue the Zepbound. I will increase the dose to 5mg/week. We discussed the potential side effects of Wegovy such as nausea, vomiting, abdominal pain, diarrhea and constipation and you will need to contact me if any of these symptoms occur or for any other new symptom you may experience 2. You will receive a link of our software marcio to generate an individualized nutritional and exercise plan specific for you. Please send me a screenshot of the plans you will generate Meal to include lean meat (beef, fish, pork, turkey, chicken), or romanian yogurt, or egg whites, or beans with a salad with olive oil and fruits (berries, pears, apples, kiwi). Avoid salt, breads, potatoes, rice, pasta, desserts. ?3. If you choose shakes, each shake would be drunk slowly, like coffee in a period of 2 hours. ?4. If you choose bars, cut each bar in 4 pieces and eat each piece in 30min ?to make each bar last 2 hours. ?5. I emphasized the importance of measuring accurately the food portion and measure it when serving the food in plate ?6. The meal portions include a specific number of forks of meat and salad. You always eat the meat portion but you can replace up to half of salad/vegetables portion with rice, potatoes or pasta, or a fruit ?if you like. The less you do it the better weight loss will be. ?7. One full-size fork is what it can be scooped on the fork without falling aside and not what can be bit with the fork. Use regular forks like those you find in a typical restaurant. ?8.? Please use your body composition scale and send me weight measurements as soon as possible and then once a week. Always include your diet and exercise plan 9. The best choice would be to purchase a stationary bike, elliptical or treadmill at home that can track calories. You can create and exercise plan with the [employer] Shopping Cart Software marcio. ?10.?It is important of avoiding and for at least 18 months postoperatively and has been discussed at the infosession. ?11. Goal is to lose at least 1.5-2lbs per week ?12. Goal to lose at least 10% of your weight, which is about 23lbs. Minimum weight goal: 210lbs 13. Please follow the diet plan exactly without any change. If you don't like something about the plan or you feel hungry you need to communicate with me so I can help you revise the plan. You should not change the plan yourself. Medications: New tirzepatide (weight loss) (Zepbound) 5 mg (0.5 mL) subcut QWEEK 2 mL 0RF E66.9 - Obesity, unspecified, Z68.37 - Body mass index [BMI] 37.0-37.9, adult
[2024-10-13 08:50] VITALS: BMI 38.8
== END 2024-10-13 09:01 | disposition home or self-care (01) ==
LOC: HO.HBS 08:13
PROVIDERS: PCP Internal Medicine; Visit Provider Surgery
DX: E66.812 Obesity, class 2 (principal); E66.09 Other obesity due to excess calories; Z68.37 Body mass index [BMI] 37.0-37.9, adult
CPT/HCPCS: 99203

== ENCOUNTER 2024-12-11 06:44 | Outpatient (REF) | payer BC, SELFPAY ==
--- OUTSIDE RECORDS SUMMARY | 2024-12-11 06:47 | XMS_ITS | Clinical Summary ---
Author Organization [facility] Address [address] [address] Phone Care Team Providers Care Head Boys Golf Coach Name Role Phone Artur Dove MD Primary Care Provider [phone] Allergies No known active allergies Medications ALPRAZolam (XANAX) 0.25 MG tablet Take 0.25 mg by mouth daily as needed. 12/25/2021 Active buPROPion (WELLBUTRIN XL) 150 MG ER 24 hr tablet Take 150 mg by mouth every morning. 12/25/2021 Active loratadine (CLARITIN) 10 mg tablet Take 10 mg by mouth daily. Active folic acid (FOLVITE) 1 MG tablet Take 1 tablet by mouth every morning. 01/15/2023 Active ferrous gluconate (FERGON) 240 mg (27 mg elemental) Tab tablet Take 1 tablet by mouth every morning. 01/18/2023 Active Active Problems Problem Noted Date Diagnosed Date Intramural leiomyoma of uterus 02/03/2020 Overview (02/03/2020): 12/2019 ultrasound at [facility] with 3 discrete fibroids largest 2 cm. Assessment & Plan (02/03/2020 11:18 AM EDT): Discussed with patient fibroids may be can attributing to her periods being somewhat more intense but not likely the cause of her RLQ. Uterus is not significantly enlarged. RLQ abdominal pain 02/03/2020 Assessment & Plan (02/03/2020 11:25 AM EDT): Discussed with patient options for treatment of ovarian cysts, ovarian pain. If RLQ is attributable to this she may find improvement with hormonal contraception. Risks and benefits reviewed. Patient would like to try OCP. She has no immediate plans for conception. Hemorrhagic ovarian cyst 02/03/2020 Overview (02/03/2020): 3 cm hemorrhagic ovarian cyst noted on ultrasound at [facility] 01/12/2020 Assessment & Plan (02/03/2020 11:27 AM EDT): Diagnosis reviewed with patient. It is possible hemorrhage within the cyst may be etiology of RLQ discomfort. Discussed use of OCP for cyst resolution and prevention of cyst formation. Patient desires to start. Follow-up as needed pain. Immunizations Immunization Administration Dates Next Due Influenza Quadrivalent MDCK Preservative Free IM 04/15/2021 Family History Medical History Relation Comments No Known Problems Brother Depression Father Diabetes type II Father not in touch Breast cancer Maternal Grandmother Depression Mother Endometriosis Mother had hyst Relation Status Comments Brother Alive Father Alive Maternal Grandfather Maternal Grandmother Mother Alive Paternal Grandfather Paternal Grandmother Social History Tobacco Use Types Packs/Day Years Used Date Smoking Tobacco: Never Smokeless Tobacco: Never Tobacco Cessation:Counseling Given: Not Answered Alcohol Use Standard Drinks/Week Comments Yes 0 [...] Industry 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 Not on file Not on file Not on file Last Filed Vital Signs Vital Sign Reading Time Taken Comments Blood Pressure 120/84 02/15/2023 9:58 AM EDT Pulse 96 02/15/2023 9:58 AM EDT Temperature 37.2 C (99 F) 02/15/2023 9:58 AM EDT Respiratory Rate 18 02/15/2023 9:58 AM EDT Oxygen Saturation 100% 02/15/2023 9:58 AM EDT Inhaled Oxygen Concentration - - Weight 108.9 kg (240 lb) 02/15/2023 9:58 AM EDT per pt Height 165.1 cm (5' 5 ) 01/30/2020 1:38 PM EDT Body Mass Index 39.94 01/30/2020 1:38 PM EDT Plan of Treatment Health Maintenance Due Date Last Done Comments DEPRESSION SCREENING 1992 HEPATITIS C SCREENING 1998 HIV ONE-TIME SCREENING (18-6 5 YEARS) 1998 SCREENING FOR DIABETES 10/29/2015 MAMMOGRAM 2020 PAP SMEAR 02/04/2023 02/05/2020, 03/08/2012 COVID-19 VACCINE ( - 2023-2 5 season) 2023 04/15/2021, 07/20/2020, 06/28/2020 Adult Td,Tdap Booster 07/17/2032 07/17/2022 SMOKING STATUS SCREENING (On ce After 26 Yrs) Completed 02/15/2023 HEPATITIS A VACCINES Aged Out No long er eligible based on patient's age to complete this topic HIB VACCINES Aged Out No longer eligi ble based on patient's age to complete this topic MENINGOCOCCAL VACCINES (ACWY) Aged Out No longer eligible based on patient's age to complete this topic MENINGOCOCCAL VACCINES (B) Aged Out N o longer eligible based on patient's age to complete this topic PNEUMOCOCCAL VACCINES (0-49 years) Aged Out No longer eligible b ased on patient's age to complete this topic Medical Devices Not on file Procedures Procedure Name Priority Date/Time Associated Diagnosis Comments HM PAP SMEAR FOR RESULT ENTRY ONLY Routine 02/05/2020 from Last 3 Months or Most Recently Relevant to Health Maintenance Results * HM PAP SMEAR FOR RESULT ENTRY ONLY (02/05/2020) Robby Meadows MD HEALTH MAINTENANCE Final Result from Last 3 Months or Most Recently Relevant to Health Maintenance Insurance [employer] [place] [address] [address] [place] [id number] [place] [address] [place] [address] [place] [address] [place] [address] ACO Care Teams Head Boys Golf Coach Relationship Specialty Start Date End Date Artur Dove MD [address] [place] [phone] PCP - General Internal Medicine 06/18/21 Additional Source Comments The information contained in this document represents components of the legal health record. It is not the complete legal health record.[facility]
[2024-12-11 07:00] LABS: MANUAL DIFF FLAG NO
[2024-12-11 07:15] LABS: Hematocrit 43.6 % (37.0-47.0); Hemoglobin 13.8 g/dl (12.0-16.0); Imm Gran Abs Auto 0.03 X10*3/uL (0.00-0.03); Imm Gran Pct Auto 0.3 % (0.0-0.4); Lymphocytes Absolute Auto 2.9 X10*3/uL (1.2-4.9); Mean Corpuscular HGB Conc 31.7 g/dl (31.0-35.0); Mean Corpuscular Hemoglobin 26.3 pg (27.0-33.0); Mean Corpuscular Volume 83.2 fL (80.0-98.0); NRBC Abs Auto 0.000 X10*3/uL (0.0-0.012); NRBC Pct Auto 0.0 /100WBC (0.0-0.2); Platelet Count 376 X10*3/uL (160-400); Red Blood Count 5.24 X10*6/uL (4.20-5.50); White Blood Count 9.7 X10*3/uL (4.8-10.8)
[2024-12-11 07:28] LABS: Hemoglobin A1C 134.0850 umol/L; Total Hemoglobin (HGBA1C) 3593.2073 umol/L
[2024-12-11 08:07] LABS: Alanine Aminotransferase 19 U/L (0-31); Albumin Level 4.3 g/dL (3.5-5.0); Alkaline Phosphatase 59 U/L (39-117); Anion Gap 13 (12-20); Aspartate Amino Transferase 15 U/L (5-31); Blood Urea Nitrogen 13 mg/dL (9-16); Calcium 9.3 mg/dL (8.4-10.2); Carbon Dioxide 24 mmol/L (22-29); Chloride 106 mmol/L (96-108); Cholesterol 204 mg/dL (<200); Estimated Glomerular Filt Rate > 60; HDL Cholesterol 54 mg/dL (>40); Potassium 4.5 mmol/L (3.3-5.1); Sodium 138 mmol/L (135-145); Total Protein 6.9 g/dL (6.5-8.0); Triglycerides 237 mg/dL (<150)
[2024-12-11 08:12] LABS: Free T4 (Free Thyroxine) 0.93 ng/dL (0.71-1.85); Thyroid Stimulating Hormone 3.08 uIU/mL (0.32-4.0)
[2024-12-11 08:23] LABS: Folate 8.1 ng/mL (> or = 4.0); Vitamin B12 253 pg/mL (200-900)
== END 2024-12-11 06:45 | disposition home or self-care (01) ==
LOC: HO.LAB 06:44
PROVIDERS: PCP Internal Medicine; Visit Provider Internal Medicine
DX: R73.01 Impaired fasting glucose (principal); E78.00 Pure hypercholesterolemia, unspecified
CPT/HCPCS: 36415; 80053; 80061; 82306; 82607; 82746; 83036; 84439; 84443; 85025

== ENCOUNTER 2024-12-12 14:49 | Outpatient (AMB) | payer BC, SELFPAY ==
--- OUTSIDE RECORDS SUMMARY | 2021-12-31 14:44 | XMS_ITS | Encounter Summary ---
Author Organization [facility] Address [address] [place] [address] [place] [phone] Phone Care Team Providers Care Lumber Checker Name Role Phone Artur Dove MD Primary Care Provider [phone] Encounter Details Date Type Department Care Team (Late st Contact Info) Description 12/31/2021 2:44 PM EDT Hospital Encounter [facility] [address] [place] [phone] Marlin Joseph CNP [address] [phone] [email or web address] Social History Tobacco Use Types Packs/Day Years Used Date Smoking Tobacco: Never Smokeless Tobacco: Never Alcohol Use Standard Drinks/Week Comments Yes 0 (1 standard drink = 0.6 oz pur e alcohol) Education Answer Date Recorded Are you interested in more education? Not on kaylan e 08/16/2022 Are you concerned about learning? Not on file 08/16/2022 No 08/16/2022 No 08/16/2022 Digital Access Answer Date Recorded No 09/13/2022 No 09/13/2022 Reliable internet access at home? Not on file 09/13/2022 Device with a working camera? 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 Narrative 12/31/2021 3:08 PM EDT XR CHEST PA AND LATERAL 2 VIEWS COMPARISON: None. FINDINGS: Devices/Tubes/Lines: None. Lungs: No focal consolidation or pulmonary edema. Mild left base subsegmental atelectasis. Pleura: No pleural effusion or pneumothorax. Heart/Mediastinum: Normal heart and mediastinum. Bones/Soft Tissues: No significant skeletal abnormality. Procedure Note Ashleigh Huerta MD - 12/31/2021 XR CHEST PA AND LATERAL 2 VIEWS COMPARISON: None. FINDINGS: Devices/Tubes/Lines: None. Lungs: No focal consolidation or pulmonary edema. Mild left basesubsegmental atelectasis. Pleura: No pleural effusion or pneumothorax. Heart/Mediastinum: Normal heart and mediastinum. Bones/Soft Tissues: No significant skeletal abnormality. IMPRESSION: No acute cardiopulmonary process. Marlin Joseph MULTIMEDIA ARTIST IMG XR CHEST Final Resul t documented in this encounter Visit Diagnoses Not on filedocumented in this encounter Additional Health Concerns Infection Onset Date Last Indicated Resolved Time CoV-Risk 12/31/2021 12/31/2021 01/11/2022 1:22 AM EDT COVID-19 02/15/2023 02/15/2023 03/08/2023 1:21 AM EST documented as of this encounter Care Teams Lumber Checker Relationship Specialty Start Date End Date Derrell, Artur Sweeney MD [address] [place] [address] PCP - General Internal Medicine 06/18/21 documented as of this encounter Additional Source Comments The information contained in this document represents components of the legal health record. It is not the complete legal health record.[facility]
[2024-12-12 14:51] VITALS: BP 122/86; PULSE 88; TEMP 36.4; O2SAT 98; BMI 38.8
--- NOTE | 2024-12-12 14:51 | MHC.PC.OV ---
Vital Signs 12/12/24 14:51 Height 5 ft 5 in Weight 233 lb BMI 38.8 BP 122/86 Blood Pressure Location Lt brachial Position Sitting Pulse 88 Pulse Source Pulse Oximeter Temp 97.5 F Temp Source Temporal Artery Scan Pulse Oximetry (%) 98 Oxygen Delivery Method Room Air Intake Visit Reasons: Annual Exam Allergies No Known Allergies Allergy (Verified 12/12/24 14:55) Medication List - Last Reconciled 12/12/24 by Artur Dove MD cetirizine 10 mg PO DAILY PRN melatonin 3 mg PO BEDTIME PRN tirzepatide (weight loss) 7.5 mg (0.5 mL) subcut QWEEK 30 days vitamin B complex 1 tab PO DAILY Tobacco use date assessed: 12/12/24 Dental Screening Dental Screen Date: 12/12/24 Did you have a dental visit in the last 12 months?: No Did you have a dental problem in the last 6 months where you did not have access to dental care?: No Was dental information given to patient?: No HPI Annual Exam HPI Details frequency. 2 weeks. gerd PFSH Medical History Diarrhea Breast cancer screening by mammogram Well woman exam with routine gynecological exam Dermatitis Cellulitis Finger mass, right Major depression Dog bite Bronchitis Allergic rhinitis Surgical History History of anal fistulotomy (09/20/24) Status post osteotomy H/O arthroscopy Family History (Updated 12/12/24 @ 15:36 by Artur Dove MD) Maternal Grandmother Breast cancer Father Substance abuse Depression Alcoholic Mother No problems noted. Son No problems noted. Maternal Grandfather Testicular cancer Maternal Aunt Uterine cancer Other FH: mental illness Social History (Updated 12/12/24 @ 15:38 by Artur Dove MD) Housing: Apartment Are you a primary senior resident care director to a significant other at home: No Do you presently have visiting nurse or other home services: No Alcohol intake: current Alcohol intake frequency: a few times a week Comment: 3-4 days georgie week Patient Tobacco Use Status: Current someday Tobacco user Tobacco use type: Cigarette Cigarette Packs Per Day: 0.25 Cigarettes Per Day: 1 Years Smoked: smokes 1 Q 2 a week. 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 1. Little interest or pleasure in doing things: not at all 2. Feeling down, depressed, or hopeless: several days 3. Trouble falling or staying asleep, or sleeping too much: several days 4. Feeling tired or having little energy: several days 5. Poor appetite or overeating: several days 6. Feeling bad about yourself - or that you are a failure or have let yourself or your family down: several days 7. Trouble concentrating on things, such as reading the newspaper or watching television: several days 8. Moving or speaking so slowly that other people could have noticed. Or the opposite - being so fidgety or restless that you have been moving around a lot more than usual: several days 9. Thoughts that you would be better off or of hurting yourself in some way: not at all Total score: 7 Depression Screening Interpretation: Positive Depression Screening Done: Yes Source: Developed by Drs. Greg De La Torre, Linda Cervantes, Jones Newton and colleagues, with an educational alexia from [employer] Thrive Questionnaire Date Thrive assessed: 08/23/24 I am a: Patient What is your living situation today?: I have a steady place to live Within the past 12 months, did the food you bought not last and you didn't have the money to get more?: Sometimes True Within the past 12 months, did you worry whether your food would run out before you got money to buy more?: Sometimes True Do you have trouble paying for medicines?: Yes Do you have trouble getting transportation to medical appointments?: No Do you have trouble paying your heating and electricity bill?: Yes Do you have trouble taking care of your child, family member or friend?: No Do you have trouble with day-to-day activities such as bathing, preparing meals, shopping, managing finances, etc.?: Yes Are you currently unemployed and looking for a job?: No Are you interested in more education?: No Please select the resources that you would like help with: None Currently or been in a relationship where the following occur: No concerns reported THRIVE Score: 3 AUDIT C Alcohol Use Questionnaire (AUDIT-C) 1. How often do you have a drink containing alcohol?: 2-3 times a week 2. How many drinks containing alcohol do you have on a typical day when you are drinking?: 1 or 2 3. How often do you have six or more drinks on one occasion?: Never Total Score: 3 SHILPI-7 AMB Questionnaire SHILPI-7 Date SHILPI - 7 assessed: 07/18/24 Feeling nervous, anxious, or on edge: 2 = More than half the days Not being able to stop or control worryin = More than half the days Worrying too much about different things: 2 = More than half the days Trouble relaxin = More than half the days Being so restless that it is hard to sit still: 2 = More than half the days Becoming easily annoyed or irritable: 2 = More than half the days Feeling afraid as if something awful might happen: 2 = More than half the days Total SHILPI-7 score (0-4 normal; 5-9 mild; 10-14 moderate; 15-21 severe): 14 Source: Developed by Drs. Greg De La Torre, Linda Cervantes, Jones Newton and colleagues, with an educational alexia from [employer] Review of Systems Const Denies poor appetite and Denies weakness Eyes Denies no additional complaints ENT Reports Normal hearing present, Denies dizziness, Denies nasal congestion, Denies tinnitus and Denies sore throat Card Denies chest pain, Denies syncope, Denies rapid heart rate and Denies dyspnea Resp Denies cough and Denies dyspnea GI Denies change in stool character, Reports constipation, Denies diarrhea, Denies nausea and Denies vomiting Denies urinary frequency, Denies difficulty voiding and Denies dysuria Neuro Reports Normal hearing present, Denies confusion, Denies dizziness, Denies syncope and Denies weakness Psych Denies confusion Physical exam (Primary Care) Vital Signs: Last Vital Signs Temp 97.5 F 12/12/24 14:51 Pulse 88 12/12/24 14:51 BP 122/86 12/12/24 14:51 Pulse Ox 98 12/12/24 14:51 Oxygen Delivery Method Room Air 12/12/24 14:51 BMI result Body Mass Index 38.8 Tobacco/Smoking Status: Tobacco use Status Tobacco use date assessed 12/12/24 12/12/24 14:56 Patient Tobacco Use Status Current someday Tobacco 12/12/24 15:38 Tobacco use type Cigarette 12/12/24 15:38 e-Cigarette/Vaping Use Never Used 12/12/24 15:38 PHQ-9: PHQ-9 Score PHQ-9: Total score 7 12/12/24 15:29 Depression Screening Interpretation: Positive Thrive Assessment: Date of Thrive Assessment Date Thrive assessed 08/23/24 12/12/24 14:56 Currently or been in a relationship where the following occur: No concerns reported Const General: alert and awake; No confusion Orientation/consciousness: No confusion HENMT Head: Yes normocephalic Ears: external ears normal and TM's normal bilaterally Face and sinus: Yes normal facial exam Mouth: moist mucous membranes Throat: Yes tonsils normal Eyes Conjunctivae: conjunctivae normal Pupils: Equal, round and reactive pupils present and Pupil accommodation reflex normal Direct Ophthalmoscopy: normal light reflex Neck Neck: No lymphadenopathy Thyroid: Thyroid normal Chest Chest palpation & inspection: normal inspection of the chest Resp Effort & Inspection: normal respiratory effort and no audible wheezes Auscultation: clear to auscultation bilaterally, no crackles, no wheezes and lung sounds not diminished Cardio Rate: regular rate Rhythm: regular rhythm Peripheral pulses: radial pulses present and dorsalis pedis present GI Palpation (GI): no masses Auscultation: normal bowel sounds and normoactive bowel sounds Rectal Exam - Female: deferred Skin General skin exam: no rashes or lesions noted Rashes: no rashes Neuro General: deep tendon reflexes 2+ bilaterally and No confusion Cranial nerves: Yes Equal, round and reactive pupils present, Yes Midline tongue present, Yes Normal hearing present and Yes Ability to bilaterally elevate shoulders present Cognition (Neuro): normal cognition Gait exam (Neuro): Normal gait present Motor exam (neuro): 5/5 motor strength present throughout Deep tendon reflexes (DTR's): Right brachioradialis reflex intensity grade: 2+, Left brachioradialis reflex intensity grade: 2+, Right patellar reflex intensity grade: 2+ and Left patellar reflex intensity grade: 2+ Extrem General: No edema Results AMB Urinalysis, Automated UA Leukoctes 0 Scott/uL Last Edit by Juanita Johnson, WU on 12/12/24 16:06 UA Nitrite Negative Last Edit by Juanita Johnson, CABLE SYSTEMS INSTALLER on 12/12/24 16:06 UA Urobilinogen 0.2 mg/dL Last Edit by Juanita Johnson, CABLE SYSTEMS INSTALLER on 12/12/24 16:06 UA Protein 15 mg/dL Last Edit by Juanita Johnson, CABLE SYSTEMS INSTALLER on 12/12/24 16:06 UA pH 5.5 Last Edit by Juanita Johnson, CABLE SYSTEMS INSTALLER on 12/12/24 16:06 UA Blood 0 Aníbal/uL Last Edit by Juanita Johnson, CABLE SYSTEMS INSTALLER on 12/12/24 16:06 UA Specific Palo 1.030 Last Edit by Juanita Johnson, CABLE SYSTEMS INSTALLER on 12/12/24 16:06 UA Ketone Negative Last Edit by Juanita Johnson, CABLE SYSTEMS INSTALLER on 12/12/24 16:06 UA Bilirubin 0 mg/dL Last Edit by Juanita Johnson, CABLE SYSTEMS INSTALLER on 12/12/24 16:06 UA Glucose 0 mg/dL Last Edit by Juanita Johnson, WU on 12/12/24 16:06 Results Reviewed Results Reviewed: Laboratory Last Values Urine pH (Auto) 5.5 12/12/24 16:02 Specific Palo (Auto) 1.030 12/12/24 16:02 Urine Protein (Auto) 15 mg/dL 12/12/24 16:02 Glucose (UA)(Auto) 0 mg/dL 12/12/24 16:02 Urine Ketones (Auto) Negative 12/12/24 16:02 Urine Blood (Auto) 0 Aníbal/uL 12/12/24 16:02 Urine Nitrite (Auto) Negative 12/12/24 16:02 Urine Bilirubin (Auto) 0 mg/dL 12/12/24 16:02 Urine Urobilinogen (Auto) 0.2 mg/dL 12/12/24 16:02 Leukocyte Esterase (Auto) 0 Scott/uL 12/12/24 16:02 Coding Level of Care Code Est Pt Prev Care 40-64y(22730) Diagnoses Annual physical exam Z00.00 Cholelithiasis K80.20 Obesity (BMI 30-39.9) E66.9 Anal fistula K60.30 Impaired fasting blood sugar R73.01 Vitamin D deficiency E55.9 Vitamin B12 deficiency E53.8 GERD (gastroesophageal reflux disease) K21.9 Frequency of micturition R35.0 Bilateral hand numbness R20.0 Assessment & Plan Assessment & Plan (1) Annual physical exam: Code(s): Z00.00 - Encounter for general adult medical examination without abnormal findings Category: Medical Plan: Patient is advised to eat healthy, keep well hydrated, keep active and have adequate sleep. (2) Cholelithiasis: Code(s): K80.20 - Calculus of gallbladder without cholecystitis without obstruction Category: Medical Plan: Low-fat diet and exercise (3) Obesity (BMI 30-39.9): Code(s): E66.9 - Obesity, unspecified Category: Medical Plan: Diet and exercise (4) Anal fistula: Comment: Anal fistulotomy September [address]24 Dr. Terry Code(s): K60.30 - Anal fistula, unspecified Category: Medical Plan: Continue to follow-up with the surgeon (5) Impaired fasting blood sugar: Code(s): R73.01 - Impaired fasting glucose Category: Medical Plan: Decrease the amount of carbohydrate intake, pasta, bread, rice and potatoes are all sugar and that is aside from all the sweet stuff, remember that fruits are good but they are Sweet also. (6) Vitamin D deficiency: Code(s): E55.9 - Vitamin D deficiency, unspecified Category: Medical Plan: Vitamin-D 6628-3174 units once a day (7) Vitamin B12 deficiency: Code(s): E53.8 - Deficiency of other specified B group vitamins Category: Medical Plan: Vitamin B12 1000 mcg once a day (8) GERD (gastroesophageal reflux disease): Code(s): K21.9 - Gastro-esophageal reflux disease without esophagitis Category: Medical (9) Frequency of micturition: Code(s): R35.0 - Frequency of micturition Category: Medical (10) Bilateral hand numbness: Code(s): R20.0 - Anesthesia of skin Category: Medical Plan History of Present Illness The patient is a 44-year-old female presenting for a physical examination and management of multiple chronic conditions. The patient has a history of obesity and has been attending weight management sessions since September 2024, resulting in a weight loss of over 20 pounds, although progress has stagnated recently. She is currently on Zepbound, which causes mild itching at the injection site, managed with Benadryl. The patient has generalized anxiety disorder, which is part of her medical history. She has a history of an anal fistula, for which she underwent an anal fistulotomy in September 2024. Post-surgery, she was advised to perform sitz baths and local wound care. The patient also has a ganglion cyst on her right hand middle finger, for which she consulted orthopedics in September 2024. A recent ultrasound for leg swelling revealed a lipoma, which is being monitored. The patient has been diagnosed with cholelithiasis, and she has been advised to maintain a low-fat diet to manage this condition. She has vitamin D and B12 deficiencies, with current levels at 21.6 ng/mL and 253 pg/mL, respectively. She has started taking vitamin D supplements and a B complex to address these deficiencies. The patient reports frequent urination, occurring six to seven times per night, which has been ongoing for about two weeks. She experiences heartburn two to three times a week, which is exacerbated by certain foods and smoking. She has been advised to avoid spicy foods, tomato products, and to maintain a gap of four hours between her last meal and bedtime. The patient has a family history of testicular cancer on her maternal side and uterine cancer in her aunt. 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 Review of Systems - General: Denies fever, chills, or weight loss - Cardiovascular: Denies chest pain or palpitations - Respiratory: Denies dyspnea or cough - Gastrointestinal: Reports heartburn two to three times a week, denies nausea or vomiting - Genitourinary: Reports frequent urination, denies dysuria - Neurological: Reports tingling in arms and fingers, denies dizziness or headaches Physical Exam General: Cooperative, healthy appearing, comfortable, no acute distress, and well developed Orientation: Patient oriented x3 Limitations: No limitations Head: Normal to inspection Ears: Hearing grossly normal bilaterally Nose: Normal external nose present Face and sinus: Normal facial exam Eyes: Appearance normal, both eyes and all related structures Neck: Normal visual inspection and Yes full ROM Respiratory: Normal respiratory effort and able to speak in complete sentences. Clear to auscultation bilaterally Cardiovascular: Regular rate and rhythm. Normal S1 and S2 GI: Normal to inspection. Soft to palpation and nontender Skin: No rashes or lesions noted, except for a small mole on the back that looks funny, but nothing bad or scary Neuro: Patient oriented x3 Extremities: Normal to inspection, but patient reports arms falling asleep and feeling tingly at night, possibly due to carpal tunnel syndrome. Pulses are fine, circulation is good. Results - Labs: Normal blood count, normal electrolytes, normal renal function, elevated blood sugar (106 mg/dL), normal hemoglobin A1c, elevated triglycerides (237 mg/dL), low vitamin D (21.6 ng/mL), low vitamin B12 (253 pg/mL) - Imaging: Abdominal CT showing diverticulosis and cholelithiasis - Ultrasound: Lipoma in leg Plan Patient was informed and verbally consented to the use of an ambient scribe for clinic note documentation during this visit. 1. Obesity The patient is advised to continue with weight management sessions and maintain a low-fat diet to manage obesity. She is currently on Zepbound, which has been adjusted once, and is experiencing mild itching at the injection site, managed with Benadryl. 2. Generalized Anxiety Disorder The patient continues to manage her generalized anxiety disorder, though specific treatment details were not discussed during this visit. 3. Anal Fistula The patient underwent an anal fistulotomy in September 2024 and was advised to perform sitz baths and local wound care post-surgery. 4. Ganglion Cyst Of The Right Hand Middle Finger The patient has consulted orthopedics regarding the ganglion cyst on her right hand middle finger, but no specific treatment plan was discussed during this visit. 5. Lipoma A lipoma was identified in the patient's leg via ultrasound, and it is currently being monitored without intervention. 6. Cholelithiasis The patient has been diagnosed with cholelithiasis and is advised to maintain a low-fat diet to manage the condition. 7. Vitamin D Deficiency The patient is advised to take vitamin D supplements, with a recommended dosage of 1000 to 2000 units daily. 8. Vitamin B12 Deficiency The patient is advised to take vitamin B12 supplements, with a recommended dosage of 1000 mcg daily. 9. Diverticulosis The patient has diverticulosis, identified via abdominal CT, and is advised to avoid constipation by increasing water and vegetable intake. 10. Frequent Urination The patient reports frequent urination, occurring six to seven times per night, and a urinalysis is planned to further investigate the cause. 11. Heartburn The patient experiences heartburn two to three times a week and is advised to avoid certain foods and maintain a gap between meals and bedtime. 12. Constipation The patient reports occasional constipation and uses stool softeners as needed, with advice to increase water and fiber intake to prevent recurrence. Discussion Notes During the visit, we discussed the management of the patient's obesity with continued weight management sessions and a low-fat diet. We also addressed the patient's vitamin deficiencies, recommending vitamin D and B12 supplementation. The patient was advised to avoid certain foods to manage heartburn and to maintain a gap between meals and bedtime. A urinalysis was planned to investigate frequent urination. We also reviewed the patient's family history of cancer and discussed the importance of regular screenings. Patient Instructions - Continue weight management sessions and maintain a low-fat diet. - Take vitamin D supplements, 1000 to 2000 units daily. - Take vitamin B12 supplements, 1000 mcg daily. - Avoid spicy foods and maintain a gap between meals and bedtime to manage heartburn. - Follow up with a urinalysis to investigate frequent urination. Urine test done revealed negative results. Called patient and discussed that I do not have a reason why she has frequency. Option of getting retested for ultrasound of the bladder but patient wanted to hold off and will call if she continues to have this frequency Orders: Orders AMB Urinalysis Automated Today R35.0 - Frequency of micturition, Z13.9 - Encounter for screening, unspecified Medications: New omeprazole 20 mg PO DAILY 30 caps 0RF K21.9 - Gastro-esophageal reflux disease without esophagitis
--- OUTSIDE RECORDS SUMMARY | 2024-12-12 15:47 | XMS_ITS | Clinical Summary ---
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 It is not the complete legal health record.[facility]
== END 2024-12-12 16:54 | disposition home or self-care (01) ==
LOC: HO.HMCH 14:50
PROVIDERS: PCP Internal Medicine; Visit Provider Internal Medicine
DX: Z00.00 Encounter for general adult medical examination without abnormal findings (principal); K80.20 Calculus of gallbladder without cholecystitis without obstruction; E66.9 Obesity, unspecified; Z68.38 Body mass index [BMI] 38.0-38.9, adult; K60.30 Anal fistula, unspecified; R73.01 Impaired fasting glucose; E55.9 Vitamin D deficiency, unspecified; E53.8 Deficiency of other specified B group vitamins; K21.9 Gastro-esophageal reflux disease without esophagitis; R35.0 Frequency of micturition; R20.0 Anesthesia of skin

== ENCOUNTER → 2024-12-12 14:49 | Outpatient (BNVA) | payer BC, SELFPAY | PROVIDERS: PCP Internal Medicine; Visit Provider Internal Medicine | DX: Z00.00 Encounter for general adult medical examination without abnormal findings (principal); K80.20 Calculus of gallbladder without cholecystitis without obstruction; E66.9 Obesity, unspecified; K60.30 Anal fistula, unspecified; R73.01 Impaired fasting glucose; E55.9 Vitamin D deficiency, unspecified; E53.8 Deficiency of other specified B group vitamins; K21.9 Gastro-esophageal reflux disease without esophagitis; R35.0 Frequency of micturition; R20.0 Anesthesia of skin; D17.20 Benign lipomatous neoplasm of skin and subcutaneous tissue of unspecified limb; K57.90 Diverticulosis of intestine, part unspecified, without perforation or abscess without bleeding; K59.00 Constipation, unspecified; Z68.38 Body mass index [BMI] 38.0-38.9, adult | CPT/HCPCS: 81003; 96127 ==

== ENCOUNTER 2025-01-09 17:24 | Outpatient (AMB) | payer BC, SELFPAY ==
--- OUTSIDE RECORDS SUMMARY | 2021-12-31 14:44 | XMS_ITS | Encounter Summary ---
Author Organization [facility] Address [address] [place] [address] [place] [phone] Phone Care Team Providers Care Global Compensation Manager Name Role Phone Artur Dove MD Primary Care Provider Encounter Details Date Type Department Care Team (Late st Contact Info) Description 12/31/2021 2:44 PM EDT Hospital Encounter [facility] [address] [place] [phone] Marlin Joseph CNP [address] [place] [phone] [email or web address] Social History Tobacco Use Types Packs/Day Years [...] 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 Marlin Joseph PROCESS EXPERT IMG XR CHEST Final Resul t documented in this encounter Visit Diagnoses Not on filedocumented in this encounter Additional Health Concerns Infection Onset Date Last Indicated Resolved Time CoV-Risk 12/31/2021 12/31/2021 01/11/2022 1:22 AM EDT COVID-19 02/15/2023 02/15/2023 03/08/2023 1:21 AM EST documented as of this encounter Care Teams Global Compensation Manager Relationship Specialty Start Date End Date Derrell, Artur Sweeney MD [address] [place] [address] PCP - General Internal Medicine 06/18/21 documented as of this encounter Additional Source Comments The information contained in this document represents components of the legal health record. It is not the complete legal health record.[facility]
--- NOTE | 2025-01-09 17:25 | A.OFFPC_ITS ---
Intake Visit Reasons: ear ache Cold Roll Catcher Required: No Allergies No Known Allergies Allergy (Verified 01/09/25 17:25) Medication List - Last Reconciled 01/09/25 by Artur Dove MD cetirizine 10 mg PO DAILY PRN hydroxyzine HCl 25 mg PO TID PRN melatonin 3 mg PO BEDTIME PRN vpohjvlk-otjcvuciq-SX 3.5-10,000-1 mg/mL-unit/mL-% 4 drps otic (ears) Q8H 7 days omeprazole 20 mg PO DAILY tirzepatide (weight loss) 7.5 mg (0.5 mL) subcut QWEEK 30 days vitamin B complex 1 tab PO DAILY Tobacco use date assessed: 01/09/25 Dental Screening Dental Screen Date: 01/09/25 Did you have a dental visit in the last 12 months?: No Did you have a dental problem in the last 6 months where you did not have access to dental care?: No Was dental information given to patient?: No HPI ear ache HPI Details dizzy spells both ears, pain on using head phone, no discharge, takes 2 allergies a day but not taking better. no congestion PFSH Medical History (Updated 01/09/25 @ 17:50 by Artur Dove MD) Obesity (BMI 30-39.9) Diarrhea Breast cancer screening by mammogram Well woman exam with routine gynecological exam Dermatitis Cellulitis Finger mass, right Major depression Dog bite Bronchitis Allergic rhinitis Surgical History History of anal fistulotomy (09/20/24) Status post osteotomy H/O arthroscopy Family History Maternal Grandmother Breast cancer Father Substance abuse Depression Alcoholic Mother No problems noted. Son No problems noted. Maternal Grandfather Testicular cancer Maternal Aunt Uterine cancer Other FH: mental illness Social History Housing: Apartment Are you a primary healthcare project manager to a significant other at home: No Do you presently have visiting nurse or other home services: No Alcohol intake: current Alcohol intake frequency: a few times a week Comment: 3-4 days georgie week Patient Tobacco Use Status: Current someday Tobacco user Tobacco use type: Cigarette Cigarette Packs Per Day: 0.25 Cigarettes Per Day: 1 Years Smoked: smokes 1 Q 2 a week. 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 Cognitive needs: No Hearing needs: No Vision needs: Yes (Glasses) Female Reproductive History Menstrual Age of Menarche: 14 Questionnaire Thrive Questionnaire Date Thrive assessed: 08/23/24 I am a: Patient What is your living situation today?: I have a steady place to live Within the past 12 months, did the food you bought not last and you didn't have the money to get more?: Sometimes True Within the past 12 months, did you worry whether your food would run out before you got money to buy more?: Sometimes True Do you have trouble paying for medicines?: Yes Do you have trouble getting transportation to medical appointments?: No Do you have trouble paying your heating and electricity bill?: Yes Do you have trouble taking care of your child, family member or friend?: No Do you have trouble with day-to-day activities such as bathing, preparing meals, shopping, managing finances, etc.?: Yes Are you currently unemployed and looking for a job?: No Are you interested in more education?: No Please select the resources that you would like help with: None Currently or been in a relationship where the following occur: No concerns reported THRIVE Score: 3 SHILPI-7 AMB Questionnaire SHILPI-7 Date SHILPI - 7 assessed: 07/18/24 Source: Developed by Drs. Greg De La Torre, Linda Cervantes, Jones Newton and colleagues, with an educational alexia from [employer]. Physical exam (Primary Care) Tobacco/Smoking Status: Tobacco use Status Tobacco use date assessed 01/09/25 01/09/25 17:26 Patient Tobacco Use Status Current someday Tobacco 01/09/25 17:26 Tobacco use type Cigarette 01/09/25 17:26 e-Cigarette/Vaping Use Never Used 01/09/25 17:26 Thrive Assessment: Date of Thrive Assessment Date Thrive assessed 08/23/24 01/09/25 17:26 Currently or been in a relationship where the following occur: No concerns reported Telehealth Telehealth Telehealth Platform: Telephone Location of provider rendering services: practice address Location of patient: address on file Patient Identification confirmed using: Name, : Yes Telehealth method: voice only Patient verbally consented to treatment: Yes Patient verbally consented to billing insurance company: Yes Patient informed of any privacy concerns related to visit: Yes Minutes spent on Phone/Video with Pt.: 15 Coding Level of Care Code Tele Est Pt Level 4 (07826) Diagnoses Otitis externa H60.90 Generalized anxiety disorder F41.1 Class 2 obesity due to excess calories without serious comorbidity with body mass index (BMI) of 37.0 to 37.9 in adult E66.812; E66.09; Z68.37 Obesity type: due to excess calories Obesity classification: adult class 2 (BMI 35 - 39.9) Serious obesity comorbidity presence: without serious comorbidity Body mass index: BMI 37.0-37.9 Assessment & Plan Assessment & Plan (1) Otitis externa: Code(s): H60.90 - Unspecified otitis externa, unspecified ear Category: Medical (2) Generalized anxiety disorder: Code(s): F41.1 - Generalized anxiety disorder Category: Medical (3) Obesity: Code(s): E66.9 - Obesity, unspecified Category: Medical Qualifiers: Obesity type: due to excess calories Obesity classification: adult class 2 (BMI 35 - 39.9) Serious obesity comorbidity presence: without serious comorbidity Body mass index: BMI 37.0-37.9 Qualified Code(s): E66.812 - Obesity, class 2; E66.09 - Other obesity due to excess calories; Z68.37 - Body mass index [BMI] 37.0-37.9, adult Plan History of Present Illness The patient is a 44-year-old female presenting with dizziness and ear pain. She reports experiencing severe dizziness spells, which she attributes to fluid or congestion in her ears, although she denies nasal congestion. The dizziness is debilitating, requiring her to stop moving for a few minutes during episodes. The patient experiences pain in both ears when using headphones, but not when tugging on the ears, suggesting the absence of an outer ear infection. She has been using allergy medications without relief, indicating the dizziness may not be allergy-related. The patient has a history of generalized anxiety disorder, which she manages with medication, although she sometimes struggles with adherence due to her work schedule. She is currently experiencing increased anxiety due to personal stressors, including a relationship breakup and demanding work hours. She expresses concern about the medication's onset time during acute anxiety attacks and is considering alternative management strategies. Review of Systems - Ears: Reports dizziness and pain when using headphones. Denies discharge or pain when tugging on ears. - Respiratory: Denies nasal congestion. - Neurological: Reports severe dizziness spells requiring cessation of movement. - Psychiatric: Reports increased anxiety due to personal stressors. Denies effective relief from current medication regimen. Plan Patient was informed and verbally consented to the use of an ambient scribe for clinic note documentation during this visit. 1. Dizziness The patient will start with ear drops, four drops three times a day for five to seven days, to address potential middle ear congestion. If symptoms do not improve within two to three days, the patient is advised to follow up for further evaluation. 2. Generalized Anxiety Disorder The patient is currently taking hydroxyzine for anxiety management, but reports difficulty adhering to the three times daily regimen due to her work schedule. She is considering alternative medications with a faster onset for acute anxiety attacks, but is concerned about potential sedation during work hours. The patient will continue her current medication and reassess its effectiveness over the next week. Discussion Notes During the consultation, I discussed with the patient the use of ear drops to alleviate her dizziness, which may be due to middle ear congestion. I advised her to monitor her symptoms and contact me if there is no improvement within two to three days. We also reviewed her anxiety management plan, considering her current medication regimen and the potential need for alternatives with a faster onset, while being mindful of sedation risks during her work hours. Patient Instructions - Use ear drops as prescribed: four drops in each ear, three times a day for five to seven days. - Monitor symptoms and contact the clinic if dizziness does not improve in two to three days. - Continue current anxiety medication and reassess its effectiveness over the next week. - Consider discussing alternative anxiety medications with faster onset if current regimen is not effective. Medications: New wdtgsspy-momhbrqql-MC 3.5-10,000-1 mg/mL-unit/mL-% 4 drps otic (ears) Q8H 10 mL 0RF 7 days H60.90 - Unspecified otitis externa, unspecified ear Refilled hydroxyzine HCl 25 mg PO TID PRN 30 tabs 0RF anxiety H60.90 - Unspecified otitis externa, unspecified ear tirzepatide (weight loss) 7.5 mg (0.5 mL) subcut QWEEK 2.5 mL 1RF 30 days E66.9 - Obesity, unspecified, Z68.37 - Body mass index [BMI] 37.0-37.9, adult
--- OUTSIDE RECORDS SUMMARY | 2025-01-09 18:49 | XMS_ITS | Clinical Summary ---
Author Organization [facility] Address [address] [address] Phone Care Team Providers Care Certified Medical Assistant Name Role Phone Artur Dove MD Primary Care Provider [phone] Allergies No known active allergies Medications ALPRAZolam [...] uterus 02/03/2020 Overview (02/03/2020): 12/2019 ultrasound at [facility] with 3 discrete fibroids largest 2 cm. 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 file Not on file Not [...] MAMMOGRAM 2020 PAP SMEAR 02/04/2023 02/05/2020, 03/08/2012 INFLUENZA VACCINE (#1) 2024 04/15/2021 COVID-19 VACCINE (2024-2 6 season) 2024 04/15/2021, 07/20/2020, 06/28/2020 Adult Td,Tdap Booster 07/17/2032 [...] Most Recently Relevant to Health Maintenance Insurance [facility] [place] [address] [address] [facility] [address] [address] [place] [address] [place] [address] ACO Care Teams Certified Medical Assistant Relationship Specialty Start Date End Date Artur Dove MD [address] [place] [phone] PCP - General Internal Medicine 06/18/21 Additional Source Comments The information contained in this document represents components of the legal health record. It is not the complete legal health record.[facility]
== END 2025-01-09 17:57 | disposition home or self-care (01) ==
LOC: HO.HMCH 17:24
PROVIDERS: PCP Internal Medicine; Visit Provider Internal Medicine
DX: H60.93 Unspecified otitis externa, bilateral (principal); F41.1 Generalized anxiety disorder; E66.812 Obesity, class 2; Z68.37 Body mass index [BMI] 37.0-37.9, adult